=== PATIENT | male | born 1985 | race Caucasian/White ===

== ENCOUNTER 2017-01-29 13:06 | Inpatient (IN) | payer SELFPAY ==
[~2017-01-29] VITALS: Ht 175.3 cm; Wt 75.0 kg
[2017-01-29 13:08] VITALS: BP 128/69; PULSE 92; RESP 24; TEMP 98.8; O2SAT 100
[2017-01-29] MEDS ORDERED: SULFAMETHOXAZOLE-TRIMETHOPRIM DS 800-160 MG TAB PO ONE (13:30)
--- NOTE | 2017-01-29 13:31 | PD ---
HPI Chief Complaint: Suicide Ideation/Attempt Time Seen by Provider: 13:17 Travel History International Travel<30 days: No Contact w/Intl Traveler<30days: No Traveled to known affect area: No History of Present Illness HPI PATIENT STATES THAT HE HAS HAD SI, ABOUT ENDING HIS LIFE AND NOT WANTING TO LIVE ANYMORE, WHEN ASKED ABOUT PLANS, HE THOUGHT OF USING A HEROIN OVERDOSE. ON A SEPARATE COMPLAINT PATIENT HAS BEEN SHOOTING INTO HIS FEET AND C/O PAIN TO BOTH FEET, 5/10, REDNESS TO BOTH FEET BUT DENIES FEVER,N/V/D/ALICIA/CP/ABDPAIN/SOB ALL:NKDA PSHX NONE PMHX: NONE PFSH Past Medical History Hx Anticoagulant Therapy: No Anxiety: No Depression: Yes Cardiovascular Problems: No Chemotherapy: No Cerebrovascular Accident: No Diabetes: No Diminished Hearing: No Endocrine: No Gastrointestinal Disorders: Yes Genitourinary: No Hepatitis: Yes (C) Immune Disorder: No Musculoskeletal: No Neurologic: No Psychiatric: Yes Reproductive: No Respiratory: No Social History Alcohol Use: No Tobacco Use: Yes (1 PPD) Substance Use: Yes Allergies-Medications (Allergen,Severity, Reaction): Coded Allergies: *MDRO Multi-Drug Resistant Organism (Verified Adverse Reaction, Unknown, ) MRSA (arm/fluid) - 01/26/16 Reported Meds & Prescriptions Reported Meds & Active Scripts Active Review of Systems Except as stated in HPI: all other systems reviewed are Neg Skin: Positive Lesions Psychiatric: Positive: Depression, Suicidal Ideations Physical Exam Narrative GENERAL: SKIN: Warm and dry. LEFT LATERAL MID BICEPS REGION HAS OVAL SHAPED CELLULITIS ABOUT 5X10CM...ALSO BILATERAL DORSUM OF FEET HAS CELLULITIC CHANGES ABOUT 5X15CM , INDURATED BUT NONFLUCTUANT, NO STREAKING HEAD: Atraumatic. Normocephalic. EYES: Pupils equal and round. No scleral icterus. No injection or drainage. ENT: No nasal bleeding or discharge. Mucous membranes pink and moist. NECK: Trachea midline. No JVD. CARDIOVASCULAR: Regular rate and rhythm. RESPIRATORY: No accessory muscle use. Clear to auscultation. Breath sounds equal bilaterally. GASTROINTESTINAL: Abdomen soft, non-tender, nondistended. Hepatic and splenic margins not palpable. MUSCULOSKELETAL: Extremities without clubbing, cyanosis, or edema. No obvious deformities. NEUROLOGICAL: Awake and alert. No obvious cranial nerve deficits. Motor grossly within normal limits. Five out of 5 muscle strength in the arms and legs. Normal speech. PSYCHIATRIC: DEPRESSED mood and SAD affect; Data Data Last Documented VS Vital Signs Date Time Temp Pulse Resp B/P Pulse Ox O2 Delivery O2 Flow Rate FiO2 01/29/17 13:08 98.8 92 24 128/69 100 Room Air Orders Complete Blood Count With Diff (01/29/17 13:17) Comprehensive Metabolic Panel (01/29/17 13:17) Urinalysis - C+S If Indicated (01/29/17 13:17) Psych Screen (01/29/17 13:17) Drug Screen, Random Urine (01/29/17 13:17) Alcohol (Ethanol) (01/29/17 13:17) Salicylates (Aspirin) (01/29/17 13:17) Tylenol (Acetaminophen) (01/29/17 13:17) Sulfamet-Trimeth Ds 800-160 Mg (Bactrim (01/29/17 13:30) Isolation (01/29/17 15:13) Labs Laboratory Tests Test 01/29/17 01/29/17 01/29/17 13:36 15:01 15:10 Sodium Level 132 MEQ/L Potassium Level 3.3 MEQ/L Chloride Level 92 MEQ/L Carbon Dioxide Level 26.3 MEQ/L Anion Gap 14 MEQ/L Blood Urea Nitrogen 7 MG/DL Creatinine 0.83 MG/DL Estimat Glomerular Filtration 109 ML/MIN Rate Random Glucose 88 MG/DL Calcium Level 9.0 MG/DL Total Bilirubin 1.1 MG/DL Aspartate Amino Transf 59 U/L (AST/SGOT) Alanine Aminotransferase 147 U/L (ALT/SGPT) Alkaline Phosphatase 46 U/L Total Protein 7.0 GM/DL Albumin 3.3 GM/DL Salicylates Level LESS THAN 1.7 MG/DL Acetaminophen Level LESS THAN 2.0 MCG/ML Ethyl Alcohol Level LESS THAN 3 MG/DL White Blood Count 11.3 TH/MM3 Red Blood Count 4.56 MIL/MM3 Hemoglobin 14.5 GM/DL Hematocrit 41.8 % Mean Corpuscular Volume 91.6 FL Mean Corpuscular Hemoglobin 31.7 PG Mean Corpuscular Hemoglobin 34.6 % Concent Red Cell Distribution Width 12.8 % Platelet Count 251 TH/MM3 Mean Platelet Volume 9.0 FL Neutrophils (%) (Auto) 83.0 % Lymphocytes (%) (Auto) 9.7 % Monocytes (%) (Auto) 7.1 % Eosinophils (%) (Auto) 0.1 % Basophils (%) (Auto) 0.1 % Neutrophils # (Auto) 9.3 TH/MM3 Lymphocytes # (Auto) 1.1 TH/MM3 Monocytes # (Auto) 0.8 TH/MM3 Eosinophils # (Auto) 0.0 TH/MM3 Basophils # (Auto) 0.0 TH/MM3 CBC Comment DIFF FINAL Differential Comment Urine Color YELLOW Urine Turbidity CLEAR Urine pH 7.5 Urine Specific [place] 1.009 Urine Protein NEG mg/dL Urine Glucose (UA) NEG mg/dL Urine Ketones 80 mg/dL Urine Occult Blood NEG Urine Nitrite NEG Urine Bilirubin NEG Urine Urobilinogen 2.0 MG/DL Urine Leukocyte Esterase NEG Urine RBC LESS THAN 1 /hpf Urine WBC 1 /hpf Urine Squamous Epithelial <1 /hpf Cells Urine Hyaline Casts 2 /lpf Urine Mucus FEW /lpf Microscopic Urinalysis Comment CULT NOT INDICATED Urine Opiates Screen POS Urine Barbiturates Screen NEG Urine Amphetamines Screen NEG Urine Benzodiazepines Screen NEG Urine Cocaine Screen POS Urine Cannabinoids Screen POS MDM Medical Decision Making Medical Screen Exam Complete: Yes Emergency Medical Condition: Yes Medical Record Reviewed: Yes Differential Diagnosis CELLULITIS V ABSCESS V COINGESTIONS V ELECTROLYTE ABNL V THYROID Narrative Course PATIENT MEDICALLY CLEARED, RECC CONTINUED USE OF BACTRIM FOR 10 DAYS TO RESOLVE CELLULITIS DUE TO SELF INJECTIONS. Diagnosis Primary Impression: Medical clearance for psychiatric admission Additional Impression: CELLULITIS OF DORSUM OF FEET Scripts No Active Prescriptions or Reported Meds Koby Johnson MD Jan 29, 2017 13:31
[2017-01-29 14:35] LABS: ALT (GPT) 147 U/L (12-78); ANION GAP 14 MEQ/L (5-15); AST (GOT) 59 U/L (15-37); BICARBONATE 26.3 MEQ/L (21.0-32.0); BLOOD UREA NITROGEN 7 MG/DL (7-18); CHLORIDE 92 MEQ/L (98-107); GLOMERULAR FILTRATION RATE 109 ML/MIN (>89); POTASSIUM 3.3 MEQ/L (3.5-5.1); SODIUM (NA) 132 MEQ/L (136-145)
[2017-01-29 14:38] LABS: ACETAMINOPHEN LESS THAN 2.0 MCG/ML (10.0-30.0); ALKALINE PHOSPHATASE 46 U/L (45-117); TOTAL BILIRUBIN ADULT 1.1 MG/DL (0.2-1.0)
[2017-01-29 15:07] LABS: ALCOHOL LESS THAN 3 MG/DL (0-5)
[2017-01-29 15:53] LABS: AUTOMATED NEUTROPHIL # 9.3 TH/MM3 (1.8-7.7); BASOPHIL % 0.1 % (0.0-2.0); EOSINOPHIL % 0.1 % (0.0-4.0); HEMATOCRIT 41.8 % (39.0-51.0); HEMO FLAGS DIFF FINAL; LYMPH % 9.7 % (9.0-44.0); LYMPHOCYTE # 1.1 TH/MM3 (1.0-4.8); MEAN CELL VOLUME 91.6 FL (80.0-100.0); MEAN CORPUSCULAR HEMOGLOBIN 31.7 PG (27.0-34.0); MEAN CORPUSCULAR HGB CONC 34.6 % (32.0-36.0); MONO % 7.1 % (0.0-8.0); PLATELET COUNT 251 TH/MM3 (150-450); RED BLOOD COUNT 4.56 MIL/MM3 (4.50-5.90); RED CELL DISTRIBUTION WIDTH 12.8 % (11.6-17.2); WHITE BLOOD COUNT 11.3 TH/MM3 (4.0-11.0)
[2017-01-29 16:23] LABS: BLOOD, URINE NEG (NEG); COMMENT (UR) CULT NOT INDICATED; CULTURE IF INDICATED CULT NOT INDICATED; GLUCOSE,URINE NEG (NEG); HYALINE CAST, URINE 2 /lpf (RARE); KETONE, URINE 80 mg/dL (NEG); MUCUS URINE FEW /lpf (OCC); NITRITE,URINE NEG (NEG); PH, URINE 7.5 (5.0-8.5); SQUAMOUS EPITHELIAL CELL URINE <1 /hpf (0-5); URINE COLOR YELLOW (YELLW/STRAW)
[2017-01-29 18:40] VITALS: BP 140/75; PULSE 96; RESP 18; TEMP 99; O2SAT 98
[2017-01-30] MEDS ORDERED: VANCOMYCIN INJ 1,000 MG in SODIUM CHLOR 0.9% 250 ML INJ 250 ML IV ONE (01:30)
[2017-01-30] MEDS ORDERED: SULFAMETHOXAZOLE-TRIMETHOPRIM DS 800-160 MG TAB PO ONE (01:30)
[2017-01-30] MEDS ORDERED: CLINDAMYCIN PHOS 600 MG/4 ML VIAL IM ONE (01:30)
[2017-01-30] MEDS ORDERED: IBUPROFEN 600 MG TAB PO ONE (01:30)
--- NOTE | 2017-01-30 01:37 | PD ---
Physical Exam Narrative I was asked by psychiatric nurse to see the patient. Patient with history IV drug abuse and with cellulitis of left upper arm and bilateral feet. Data Data Last Documented VS Vital Signs Date Time Temp Pulse Resp B/P Pulse Ox O2 Delivery O2 Flow Rate FiO2 01/29/17 18:40 99.0 96 18 140/75 98 Room Air Orders Complete Blood Count With Diff (01/29/17 13:17) Comprehensive Metabolic Panel (01/29/17:17) Urinalysis - C+S If Indicated (01/29/17:) Psych Screen (01/29/17 13:17) Drug Screen, Random Urine (01/29/17:17) Alcohol (Ethanol) (01/29/17:) Salicylates (Aspirin) (01/29/17:) Tylenol (Acetaminophen) (01/29/17 13:17) Sulfamet-Trimeth Ds 800-160 Mg (Bactrim (01/29/17 13:30) Isolation 08,20 (01/29/17 15:13) Sulfamet-Trimeth Ds 800-160 Mg (Bactrim (01/30/17 01:30) Clindamycin Inj (Cleocin Inj) (01/30/17 01:30) Ibuprofen (Motrin) (01/30/17 01:30) Admit Order (Ed Use Only) (01/30/17 01:28) Vancomycin Inj (Vancomycin Inj) (01/30/17 01:30) Labs Laboratory Tests Test 01/29/17 01/29/17 01/29/17 13:36 15:01 15:10 Sodium Level 132 MEQ/L Potassium Level 3.3 MEQ/L Chloride Level 92 MEQ/L Carbon Dioxide Level 26.3 MEQ/L Anion Gap 14 MEQ/L Blood Urea Nitrogen 7 MG/DL Creatinine 0.83 MG/DL Estimat Glomerular Filtration 109 ML/MIN Rate Random Glucose 88 MG/DL Calcium Level 9.0 MG/DL Total Bilirubin 1.1 MG/DL Aspartate Amino Transf 59 U/L (AST/SGOT) Alanine Aminotransferase 147 U/L (ALT/SGPT) Alkaline Phosphatase 46 U/L Total Protein 7.0 GM/DL Albumin 3.3 GM/DL Salicylates Level LESS THAN 1.7 MG/DL Acetaminophen Level LESS THAN 2.0 MCG/ML Ethyl Alcohol Level LESS THAN 3 MG/DL White Blood Count 11.3 TH/MM3 Red Blood Count 4.56 MIL/MM3 Hemoglobin 14.5 GM/DL Hematocrit 41.8 % Mean Corpuscular Volume 91.6 FL Mean Corpuscular Hemoglobin 31.7 PG Mean Corpuscular Hemoglobin 34.6 % Concent Red Cell Distribution Width 12.8 % Platelet Count 251 TH/MM3 Mean Platelet Volume 9.0 FL Neutrophils (%) (Auto) 83.0 % Lymphocytes (%) (Auto) 9.7 % Monocytes (%) (Auto) 7.1 % Eosinophils (%) (Auto) 0.1 % Basophils (%) (Auto) 0.1 % Neutrophils # (Auto) 9.3 TH/MM3 Lymphocytes # (Auto) 1.1 TH/MM3 Monocytes # (Auto) 0.8 TH/MM3 Eosinophils # (Auto) 0.0 TH/MM3 Basophils # (Auto) 0.0 TH/MM3 CBC Comment DIFF FINAL Differential Comment Urine Color YELLOW Urine Turbidity CLEAR Urine pH 7.5 Urine Specific [place] 1.009 Urine Protein NEG mg/dL Urine Glucose (UA) NEG mg/dL Urine Ketones 80 mg/dL Urine Occult Blood NEG Urine Nitrite NEG Urine Bilirubin NEG Urine Urobilinogen 2.0 MG/DL Urine Leukocyte Esterase NEG Urine RBC LESS THAN 1 /hpf Urine WBC 1 /hpf Urine Squamous Epithelial <1 /hpf Cells Urine Hyaline Casts 2 /lpf Urine Mucus FEW /lpf Microscopic Urinalysis Comment CULT NOT INDICATED Urine Opiates Screen POS Urine Barbiturates Screen NEG Urine Amphetamines Screen NEG Urine Benzodiazepines Screen NEG Urine Cocaine Screen POS Urine Cannabinoids Screen POS MDM Supervised Visit with MELLY: No Narrative Course Patient will be admitted to the medical service with psychiatric consultation. Zosyn 3.375 g IV given. Vancomycin 1 g IV given. Diagnosis Primary Impression: Medical clearance for psychiatric admission Additional Impressions: CELLULITIS OF DORSUM OF FEET Left arm cellulitis Admitting Information Admitting Physician Requests: Admit Scripts No Active Prescriptions or Reported Meds Gabriel Castelan MD Jan 30, 2017 01:37
[2017-01-30] MEDS: SODIUM CHLOR 0.9% 1000 ML INJ 1,000 ML IV SCH ×2 (01:39→14:30)
[2017-01-30] MEDS ORDERED: LACTULOSE SYRUP 20 GM/30 ML CUP PO PRN (01:45)
[2017-01-30] MEDS ORDERED: PIPERACIL-TAZO 3.375 GM PREMIX 50 ML IV ONE (01:45)
[2017-01-30] MEDS ORDERED: Vancomycin Consult Pharmacy 1 EA OTHER SCH (01:45)
[2017-01-30] MEDS ORDERED: ONDANSETRON HCL 4 MG/2 ML VIAL IVP PRN (01:45)
[2017-01-30] MEDS ORDERED: SODIUM CHLORIDE 0.9% FLUSH 10 ML FLUSH IV FLUSH PRN (01:45)
[2017-01-30] MEDS ORDERED: ACETAMINOPHEN 325 MG TAB PO PRN (01:45)
[2017-01-30] MEDS ORDERED: SENNOSIDES 8.6 MG TAB PO PRN (01:45)
[2017-01-30] MEDS ORDERED: MAGNESIUM HYDROXIDE SUSP 30 ML CUP PO PRN (01:45)
[2017-01-30] MEDS ORDERED: BISACODYL 10 MG SUPP RECTAL PRN (01:45)
--- NOTE | 2017-01-30 03:08 | HHI.HP ---
[facility] Primary [facility]ician No Primary Care Physician Admission Diagnosis left foot cellulitis. Left arm cellulitis. Diagnoses: (1) Cellulitis Diagnosis: Principal (2) Hypokalemia Diagnosis: Principal (3) IVDU (intravenous drug user) Diagnosis: Principal (4) Suicidal ideation Diagnosis: Principal (5) Tobacco abuse Diagnosis: Principal Travel History International Travel<30 Days: No Contact w/Intl Traveler <30 Da: No Traveled to Known Affected Are: No History of Present Illness This is a 31 year-old male w/ a PMH of Hepatitis C, Tobacco Abuse and IVDU who was sent from [facility] for admission secondary to cellulitis. Initially presented to ER w/ Suicidal Ideation, currently under Rawls Act. Found to have LUE and Bilateral LE Cellulitis at previous injection sites, no abscess noted, s/p Bactrim PO and medically cleared however pt sent back to ER for medical admission due to extensive cellulitis. On arrival, BP 140/75, HR 96, O2 sat 98 % on RA, Temp 99.0. WBC 11.3. Chemistry unremarkable except for K+ 3.3. Urine Drug Screen positive for Opiates, Cocaine and Marijuana. Alcohol negative. S/p Vanc/Zosyn in ER. Review of Systems Except as stated in HPI: all other systems reviewed are Neg ROS: 14 point review of systems otherwise negative. Past Family Social History Past Medical History PMH: Hepatitis C, Tobacco Abuse and IVDU Past Surgical History PAST SURGICAL HISTORY: Orthopedic Surgery Allergies: Coded Allergies: *MDRO Multi-Drug Resistant Organism (Verified Adverse Reaction, Unknown, ) MRSA (arm/fluid) - 01/26/16 Family History PAST FAMILY HISTORY: Reviewed. No h/o DM or CAD Social History PAST SOCIAL HISTORY: Negative for alcohol. Smokes 1ppd. IVDU w/ Cocaine/ Opiates, +Marijuana. Physical Exam Vital Signs Vital Signs Date Time Temp Pulse Resp B/P Pulse Ox O2 Delivery O2 Flow Rate FiO2 01/29/17 18:40 99.0 96 18 140/75 98 Room Air 01/29/17 13:08 98.8 92 24 128/69 100 Room Air Physical Exam PE: GENERAL: Young male in no acute distress. HEENT: PERRLA, EOMI. No scleral icterus or conjunctival pallor. No lid lag or facial droop. CARDIOVASCULAR: Regular rate and rhythm. No obvious murmurs to auscultation. No chest tenderness to palpation. RESPIRATORY: No obvious rhonchi or wheezing. Clear to auscultation. Breath sounds equal bilaterally. GASTROINTESTINAL: Abdomen soft, non-tender, nondistended. BS normal. MUSCULOSKELETAL: Extremities without clubbing, cyanosis, or edema. No obvious deformities. LUE cellulitis, bilateral lower extremity cellulitis, no abscess noted. NEUROLOGICAL: Awake, alert and oriented x4. No focal neurologic deficits. Moving both upper and lower extremities spontaneously. Laboratory Laboratory Tests Test 01/29/17 01/29/17 01/29/17 13:36 15:01 15:10 Sodium Level 132 Potassium Level 3.3 Chloride Level 92 Carbon Dioxide Level 26.3 Anion Gap 14 Blood Urea Nitrogen 7 Creatinine 0.83 Estimat Glomerular Filtration 109 Rate Random Glucose 88 Calcium Level 9.0 Total Bilirubin 1.1 Aspartate Amino Transf 59 (AST/SGOT) Alanine Aminotransferase 147 (ALT/SGPT) Alkaline Phosphatase 46 Total Protein 7.0 Albumin 3.3 Salicylates Level LESS THAN 1.7 Acetaminophen Level LESS THAN 2.0 Ethyl Alcohol Level LESS THAN 3 White Blood Count 11.3 Red Blood Count 4.56 Hemoglobin 14.5 Hematocrit 41.8 Mean Corpuscular Volume 91.6 Mean Corpuscular Hemoglobin 31.7 Mean Corpuscular Hemoglobin 34.6 Concent Red Cell Distribution Width 12.8 Platelet Count 251 Mean Platelet Volume 9.0 Neutrophils (%) (Auto) 83.0 Lymphocytes (%) (Auto) 9.7 Monocytes (%) (Auto) 7.1 Eosinophils (%) (Auto) 0.1 Basophils (%) (Auto) 0.1 Neutrophils # (Auto) 9.3 Lymphocytes # (Auto) 1.1 Monocytes # (Auto) 0.8 Eosinophils # (Auto) 0.0 Basophils # (Auto) 0.0 CBC Comment DIFF FINAL Differential Comment Urine Color YELLOW Urine Turbidity CLEAR Urine pH 7.5 Urine Specific [place] 1.009 Urine Protein NEG Urine Glucose (UA) NEG Urine Ketones 80 Urine Occult Blood NEG Urine Nitrite NEG Urine Bilirubin NEG Urine Urobilinogen 2.0 Urine Leukocyte Esterase NEG Urine RBC LESS THAN 1 Urine WBC 1 Urine Squamous Epithelial <1 Cells Urine Hyaline Casts 2 Urine Mucus FEW Microscopic Urinalysis Comment CULT NOT INDICATED Urine Opiates Screen POS Urine Barbiturates Screen NEG Urine Amphetamines Screen NEG Urine Benzodiazepines Screen NEG Urine Cocaine Screen POS Urine Cannabinoids Screen POS Result Diagram: 01/29/17 1501 01/29/17 1336 Assessment and Plan Problem List: (1) Cellulitis ICD Code: L03.90 Status: Acute (2) IVDU (intravenous drug user) ICD Code: F19.90 Status: Acute (3) Suicidal ideation ICD Code: R45.851 Status: Acute (4) Hypokalemia ICD Code: E87.6 Status: Acute (5) Tobacco abuse ICD Code: Z72.0 Status: Chronic Assessment and Plan A/P: 1. Cellulitis: LUE and Bilateral LE Cellulitis at sites of injection, Temp 99.0, WBC 11. S/p Vanc/Zosyn in ER, will obtain Blood Cultures x3, continue w/ IV Abx. Repeat labs in am. 2. IVDU: w/ Cocaine/Opiates, Ativan prn for withdrawal. 3. Hypokalemia: Mild. K+ 3.3, will recheck labs and replace as needed. 4. Suicidal Ideation: Currently under Rawls Act, Sitter, Consult Psych. 5. Tobacco Abuse: Pt counselled. Ativan/NicoDerm prn if needed. 6. DVT Prophylaxis: Mechanical contraindication in light of lower extremity cellulitis. 7. Social work for d/c planning as needed. 8. Case discussed w/ ER physician at length. Physician Certification 2 Midnight Certification Type: Admission for Inpatient Services Order for Inpatient Services The services are ordered in accordance with Medicare regulations or non- Medicare payer requirements, as applicable. In the case of services not specified as inpatient-only, they are appropriately provided as inpatient services in accordance with the 2-midnight benchmark. Estimated LOS (days): 2 days is the estimated time the patient will need to remain in the hospital, assuming treatment plan goals are met and no additional complications. Post-Hospital Plan: Not yet determined Problem Qualifiers (1) Cellulitis: Robyn Rainey MD Jan 30, 2017 03:08
[2017-01-30] MEDS ORDERED: POTASSIUM CHLORIDE 20 MEQ CONTROLLED RELEASE TAB PO ONE (08:15)
[2017-01-30] MEDS: PIPERACIL-TAZO 4.5 GM PREMIX 100 ML IV SCH ×3 (08:22→21:04)
[2017-01-30] MEDS: DOCUSATE SODIUM 50 MG/SENNA 8.6 MG TAB PO SCH ×2 (09:00→21:01)
[2017-01-30] MEDS: SODIUM CHLORIDE 0.9% FLUSH 10 ML FLUSH IV FLUSH SCH ×2 (09:00→21:04)
[2017-01-30 09:12] VITALS: BP 126/68; PULSE 75; RESP 18; TEMP 97.5; O2SAT 96
[2017-01-30] MEDS ORDERED: VANCOMYCIN 1,000 MG/NS 250 ML IV SCH ×2 (10:00)
--- NOTE | 2017-01-30 10:01 | HHI.PR ---
Subjective Remarks Follow up for cellulitis, IVDU, suicidal ideations. The patient reports minimal improvement of his leg erythema/edema. He admits to injecting into both feet and left arm distal to the areas of cellulitis. He reports subjective chills and sweats overnight, no documented fevers. He's tolerating oral intake. Denies nausea/vomiting/diarrhea. He has no other medical complaints at this time. Objective Vitals Vital Signs Date Time Temp Pulse Resp B/P Pulse Ox O2 Delivery O2 Flow Rate FiO2 01/30/17 09:12 97.5 75 18 126/68 96 01/29/17 18:40 99.0 96 18 140/75 98 Room Air 01/29/17 13:08 98.8 92 24 128/69 100 Room Air I/O 01/29/17 01/29/17 01/29/17 01/30/17 01/30/17 01/30/17 07:00 15:00 23:00 07:00 15:00 23:00 Intake Total 200 ml 200 ml Balance 200 ml 200 ml Intake Oral 200 ml 200 ml Result Diagram: 01/29/17 1501 01/29/17 1336 Objective Remarks GENERAL: Well-nourished, well-developed young male patient in [facility]. SKIN: Warm and dry. LUE bicep region with erythema/edema. LLE foot with diffuse erythema, edema, TTP. RLE foot with less erythema/edema. No areas of induration/ drainage. HEENT: Normocephalic. Atraumatic. Pupils equal and round. Mucous membranes pink and moist. CARDIOVASCULAR: Regular rate and rhythm. S1, S2 noted. No murmur appreciated. RESPIRATORY: No accessory muscle use. Clear to auscultation. Breath sounds equal bilaterally. GASTROINTESTINAL: Abdomen soft, non-tender, nondistended. Normoactive bowel sounds x4. MUSCULOSKELETAL: No obvious deformities. Extremities without clubbing, cyanosis , or edema. NEUROLOGICAL: Awake and alert. No obvious cranial nerve deficits. Normal speech. PSYCHIATRIC: Appropriate mood and affect; insight and judgment normal. Medications and IVs Current Medications Medications (Trade) Dose Ordered Sig/Molly Route Start Time Stop Time Status Last Admin Pharmacy Profile Note 0 ml @ 0 mls/hr UNSCH OTHER 01/30/17 01:45 (Zosyn 4.5 Gm Premix) 100 ml @ 200 mls/hr Q6H IV 01/30/17 08:00 01/30/17 08:22 Lorazepam 1 mg 1 mg Q2H PRN IV PUSH 01/30/17 01:45 (NS 1000 ml Inj) 1,000 ml @ 100 mls/hr Q10H IV 01/30/17 01:39 01/30/17 01:39 (NS Flush) 2 ml UNSCH PRN IV FLUSH 01/30/17 01:45 (NS Flush) 2 ml BID IV FLUSH 01/30/17 09:00 (Zofran Inj) 4 mg Q6H PRN IVP 01/30/17 01:45 (Tylenol) 650 mg Q6H PRN PO 01/30/17 01:45 (Roxicodone) 10 mg Q4H PRN PO 01/30/17 01:45 (Roxicodone) 5 mg Q4H PRN PO 01/30/17 01:45 (Mamta-Colace) 1 tab BID PO 01/30/17 09:00 (Milk Of Magnesia Liq) 30 ml Q12H PRN PO 01/30/17 01:45 (Senokot) 17.2 mg Q12H PRN PO 01/30/17 01:45 (Dulcolax Supp) 10 mg DAILY PRN RECTAL 01/30/17 01:45 (Lactulose Liq) 30 ml DAILY PRN PO 01/30/17 01:45 Pneumococcal Polyvalent Vaccine 25 mcg 25 mcg ONCE ONCE IM 01/31/17 10:00 01/31/17 10:01 (Vancomycin Inj/ NS 250 ml Inj) 250 ml @ 250 mls/hr Q12H IV 01/30/17 10:00 Miscellaneous Information SPECIFIC LAB TO BE KAITLIN... ONCE ONCE .XX 01/31/17 01:45 01/31/17 01:46 A/P Problem List: (1) Cellulitis ICD Code: L03.90 Status: Acute (2) IVDU (intravenous drug user) ICD Code: F19.90 Status: Acute (3) Suicidal ideation ICD Code: R45.851 Status: Acute (4) Hypokalemia ICD Code: E87.6 Status: Acute (5) Tobacco abuse ICD Code: Z72.0 Status: Chronic Assessment and Plan 31 year-old male w/ a PMH of Hepatitis C, Tobacco Abuse and IVDU who was sent from [facility] for admission secondary to cellulitis. Cellulitis: LUE and Bilateral LE Cellulitis at sites of injection, Temp 99.0, tachycardia HR 96, WBC 11.3K. Continue antibiotics with IV Vanco and Zosyn. Start on toradol for inflammation. Oxycodone prn pain. Collect blood cultures. Monitor labs. Polysubstance IVDU: UDS + Cocaine/Opiates and cannabinoids. Ativan prn for withdrawal. Hypokalemia: Mild. K+ 3.3. Given po KCl replacement. Repeat labs. Suicidal Ideation: Currently under [employer]ls Act. Continue Sitter. Consult Psych. Tobacco Abuse: Pt counselled. Ativan/NicoDerm prn if needed. DVT Prophylaxis: Lovenox. Mechanical contraindication secondary to lower extremity cellulitis. Discharge Planning Pending further clinical improvement. Not yet ready for discharge. Possible discharge in 2-3 days. Problem Qualifiers (1) Cellulitis: Anika Beckett PA-C Jan 30, 2017 10:01 am
[2017-01-30] MEDS: KETOROLAC TROMETHAMINE 30 MG/ML (IVP) VIAL IV PUSH SCH ×2 (11:54→17:30)
[2017-01-30] MEDS: LORazepam 2 MG/ML VIAL IV PUSH PRN ×3 (11:54→21:06)
[2017-01-30 14:35] VITALS: BP 118/69; PULSE 79; RESP 16; TEMP 98.6; O2SAT 98
[2017-01-30] MEDS: GABAPENTIN 300 MG CAP PO SCH (17:20)
[2017-01-30] MEDS: VANCOMYCIN 1,000 MG/NS 250 ML IV SCH ×2 (17:30)
[2017-01-30 18:51] VITALS: BP 122/65; PULSE 72; RESP 16; TEMP 98.6; O2SAT 69
[2017-01-30 20:38] VITALS: BP 126/77; PULSE 64; RESP 18; TEMP 98.7; O2SAT 97
[2017-01-30] MEDS: QUEtiapine FUMARATE 25 MG TAB PO SCH (21:01)
[2017-01-30] MEDS: ENOXAPARIN SODIUM 40 MG/0.4 ML SYRINGE SQ SCH (21:05)
[2017-01-31] MEDS: KETOROLAC TROMETHAMINE 30 MG/ML (IVP) VIAL IV PUSH SCH ×4 (00:19→17:27)
[2017-01-31] MEDS: PIPERACIL-TAZO 4.5 GM PREMIX 100 ML IV SCH ×4 (01:41→20:34)
[2017-01-31] MEDS ORDERED: PHARMACY ORDERED LAB ONE (01:45)
[2017-01-31] MEDS: VANCOMYCIN 1,000 MG/NS 250 ML IV SCH ×2 (03:17)
[2017-01-31 03:31] VITALS: BP 123/69; PULSE 63; RESP 18; TEMP 98.7; O2SAT 97
[2017-01-31] MEDS: LORazepam 2 MG/ML VIAL IV PUSH PRN (05:58)
[2017-01-31] MEDS: SODIUM CHLORIDE 0.9% FLUSH 10 ML FLUSH IV FLUSH SCH ×2 (05:58→20:34)
[2017-01-31] MEDS: SODIUM CHLOR 0.9% 1000 ML INJ 1,000 ML IV SCH ×3 (06:00→17:39)
[2017-01-31 06:51] VITALS: BP 126/81; PULSE 72; RESP 18; TEMP 98.4; O2SAT 97
[2017-01-31 07:50] LABS: AUTOMATED NEUTROPHIL # 5.6 TH/MM3 (1.8-7.7); BASOPHIL % 0.4 % (0.0-2.0); EOSINOPHIL # 0.2 TH/MM3 (0-0.4); EOSINOPHIL % 2.4 % (0.0-4.0); HEMATOCRIT 41.6 % (39.0-51.0); HEMO FLAGS DIFF FINAL; LYMPH % 21.9 % (9.0-44.0); LYMPHOCYTE # 1.9 TH/MM3 (1.0-4.8); MEAN CELL VOLUME 92.9 FL (80.0-100.0); MEAN CORPUSCULAR HEMOGLOBIN 31.8 PG (27.0-34.0); MEAN CORPUSCULAR HGB CONC 34.2 % (32.0-36.0); MONO % 11.2 % (0.0-8.0); NEUT % 64.1 % (16.0-70.0); PLATELET COUNT 268 TH/MM3 (150-450); RED BLOOD COUNT 4.48 MIL/MM3 (4.50-5.90); RED CELL DISTRIBUTION WIDTH 12.5 % (11.6-17.2); WHITE BLOOD COUNT 8.7 TH/MM3 (4.0-11.0)
[2017-01-31 08:08] LABS: ALKALINE PHOSPHATASE 41 U/L (45-117); ALT (GPT) 83 U/L (12-78); ANION GAP 7 MEQ/L (5-15); AST (GOT) 25 U/L (15-37); BICARBONATE 27.8 MEQ/L (21.0-32.0); BLOOD UREA NITROGEN 4 MG/DL (7-18); CHLORIDE 105 MEQ/L (98-107); GLOMERULAR FILTRATION RATE 64 ML/MIN (>89); POTASSIUM 3.5 MEQ/L (3.5-5.1); SODIUM (NA) 140 MEQ/L (136-145); TOTAL BILIRUBIN ADULT 0.6 MG/DL (0.2-1.0)
[2017-01-31] MEDS: GABAPENTIN 300 MG CAP PO SCH ×3 (08:27→17:25)
[2017-01-31] MEDS: QUEtiapine FUMARATE 25 MG TAB PO SCH ×2 (08:27→20:34)
[2017-01-31] MEDS: DOCUSATE SODIUM 50 MG/SENNA 8.6 MG TAB PO SCH ×2 (08:27→20:34)
[2017-01-31 08:50] VITALS: BP 131/82; PULSE 60; RESP 18; TEMP 98.5; O2SAT 99
[2017-01-31] MEDS ORDERED: PNEUMOCOCCAL POLYVALENT INJ 25 MCG/0.5 ML SYR IM ONE (10:00)
[2017-01-31] MEDS ORDERED: INFLUENZA VIRUS VACCINE (QUADRIVALENT) 0.5 ML SYR IM ONE (10:00)
--- NOTE | 2017-01-31 11:17 | HHI.PR ---
Subjective Remarks Follow up for cellulitis, IVDU. The patient reports continued pain at bilateral feet and left arm although he does believe the erythema/edema is slowly improving. Denies fevers but does report chills overnight. Denies any chest pain or shortness of breath. He is tolerating oral intake, has occasional nausea but no vomiting. Denies any diarrhea. He does not feel ready for discharge. Objective Vitals Vital Signs Date Time Temp Pulse Resp B/P Pulse Ox O2 Delivery O2 Flow Rate FiO2 01/31/17 08:50 98.5 60 18 131/82 99 01/31/17 06:51 98.4 72 18 126/81 97 01/31/17 03:31 98.7 63 18 123/69 97 01/30/17 20:38 98.7 64 18 126/77 97 01/30/17 18:51 98.6 72 16 122/65 69 01/30/17 14:35 98.6 79 16 118/69 98 I/O 01/30/17 01/30/17 01/30/17 01/31/17 01/31/17 01/31/17 07:00 15:00 23:00 07:00 15:00 23:00 Intake Total 200 ml 200 ml 980 ml Balance 200 ml 200 ml 980 ml Intake Oral 200 ml 200 ml IV Total 980 ml # Voids 1 # Bowel Movements 1 Result Diagram: 01/31/1755 01/31/1755 Objective Remarks GENERAL: Well-nourished, well-developed young male patient in [facility]. SKIN: Warm and dry. LUE bicep region with erythema/edema. LLE foot with diffuse erythema, edema, TTP. RLE foot with less erythema/edema. No areas of induration/ drainage. HEENT: Normocephalic. Atraumatic. Pupils equal and round. Mucous membranes pink and moist. CARDIOVASCULAR: Regular rate and rhythm. S1, S2 noted. No murmur appreciated. RESPIRATORY: No accessory muscle use. Clear to auscultation. Breath sounds equal bilaterally. GASTROINTESTINAL: Abdomen soft, non-tender, nondistended. Normoactive bowel sounds x4. MUSCULOSKELETAL: No obvious deformities. Extremities without clubbing, cyanosis , or edema. NEUROLOGICAL: Awake and alert. No obvious cranial nerve deficits. Normal speech. PSYCHIATRIC: Appropriate mood and affect; insight and judgment normal. Medications and IVs Current Medications Medications (Trade) Dose Ordered Sig/Molly Route Start Time Stop Time Status Last Admin Pharmacy Profile Note 0 ml @ 0 mls/hr UNSCH OTHER 01/30/17 01:45 (Zosyn 4.5 Gm Premix) 100 ml @ 200 mls/hr Q6H IV 01/30/17 08:00 01/31/17 08:27 Lorazepam 1 mg 1 mg Q2H PRN IV PUSH 01/30/17 01:45 01/31/17 05:58 (NS 1000 ml Inj) 1,000 ml @ 100 mls/hr Q10H IV 01/30/17 01:39 01/31/17 06:00 (NS Flush) 2 ml UNSCH PRN IV FLUSH 01/30/17 01:45 (NS Flush) 2 ml BID IV FLUSH 01/30/17 09:00 01/31/17 05:58 (Zofran Inj) 4 mg Q6H PRN IVP 01/30/17 01:45 01/30/17 21:30 (Tylenol) 650 mg Q6H PRN PO 01/30/17 01:45 (Roxicodone) 10 mg Q4H PRN PO 01/30/17 01:45 01/30/17 21:29 (Roxicodone) 5 mg Q4H PRN PO 01/30/17 01:45 (Mamta-Colace) 1 tab BID PO 01/30/17 09:00 01/30/17 21:01 (Milk Of Magnesia Liq) 30 ml Q12H PRN PO 01/30/17 01:45 (Senokot) 17.2 mg Q12H PRN PO 01/30/17 01:45 (Dulcolax Supp) 10 mg DAILY PRN RECTAL 01/30/17 01:45 (Lactulose Liq) 30 ml DAILY PRN PO 01/30/17 01:45 (Lovenox Inj) 40 mg HS SQ 01/30/17 21:00 01/30/17 21:05 (Toradol Inj) 15 mg Q6HR IV PUSH 01/30/17 12:00 02/04/17 11:59 01/31/17 05:59 (Neurontin) 300 mg TID PO 01/30/17 18:00 01/31/17 08:27 Quetiapine Fumarate 50 mg 50 mg BID PO 01/30/17 21:00 01/31/17 08:27 (Vancomycin Inj/ NS 250 ml Inj) 262.5 ml @ 250 mls/hr Q12H IV 01/31/17 15:00 Miscellaneous Information SPECIFIC LAB TO BE DRAWN:VANCOMYCIN TROUGH DATE TO... ONCE ONCE .XX 02/01/17 14:45 02/01/17 14:46 A/P Problem List: (1) Cellulitis ICD Code: L03.90 Status: Acute (2) IVDU (intravenous drug user) ICD Code: F19.90 Status: Acute (3) Suicidal ideation ICD Code: R45.851 Status: Acute (4) Hypokalemia ICD Code: E87.6 Status: Acute (5) Tobacco abuse ICD Code: Z72.0 Status: Chronic Assessment and Plan 31 year-old male w/ a PMH of Hepatitis C, Tobacco Abuse and IVDU who was sent from [facility] for admission secondary to cellulitis. Cellulitis: LUE and Bilateral LE Cellulitis at sites of injection, Temp 99.0, tachycardia HR 96, WBC 11.3K. Continue antibiotics with IV Vanco and Zosyn. Start on toradol for inflammation. Oxycodone prn pain. Blood cultures pending. Monitor labs. Polysubstance IVDU: UDS + Cocaine/Opiates and cannabinoids. Ativan prn for withdrawal. Oxycodone prn. RICKY: Cr increased from 0.83 to 1.32 overnight. Possible secondary to vanco vs gabapentin vs dehydration. Patient reports he was not connected to IVF most of the night. RN reports trouble with IV. Replace IV, Continue IVF. Repeat BMP in the morning. Hypokalemia: Mild. K+ 3.3. Given po KCl replacement. Repeat labs show improvement, K 3.5. Monitor. Suicidal Ideation: Presented under [place]. Consulted Psych, [place] Act lifted, started on Seroquel. D/c sitter. No further SI. Tobacco Abuse: Pt counselled. Ativan/NicoDerm prn if needed. DVT Prophylaxis: Lovenox. Mechanical contraindication secondary to lower extremity cellulitis. Discharge Planning Pending further clinical improvement. Not yet ready for discharge. Possible discharge in 1-2 days. Problem Qualifiers (1) Cellulitis: Anika Beckett PA-C Jan 31, 2017 11:17 am
[2017-01-31 11:56] VITALS: BP 115/64; PULSE 93; RESP 18; TEMP 98.7; O2SAT 97
[2017-01-31] MEDS: VANCOMYCIN INJ 1,250 MG in SODIUM CHLOR 0.9% 250 ML INJ 250 ML IV SCH (14:45)
[2017-01-31 16:11] VITALS: BP 128/84; PULSE 76; RESP 18; TEMP 99.5; O2SAT 96
[2017-01-31 19:54] VITALS: BP 117/62; PULSE 90; RESP 18; TEMP 98.6; O2SAT 98
[2017-01-31] MEDS: ENOXAPARIN SODIUM 40 MG/0.4 ML SYRINGE SQ SCH (20:35)
[2017-02-01 00:09] VITALS: BP 120/65; PULSE 88; RESP 18; TEMP 98; O2SAT 98
[2017-02-01] MEDS: PIPERACIL-TAZO 4.5 GM PREMIX 100 ML IV SCH ×3 (01:04→14:59)
[2017-02-01] MEDS: KETOROLAC TROMETHAMINE 30 MG/ML (IVP) VIAL IV PUSH SCH ×5 (01:04→23:16)
[2017-02-01] MEDS: SODIUM CHLOR 0.9% 1000 ML INJ 1,000 ML IV SCH ×2 (01:05→12:56)
[2017-02-01] MEDS: VANCOMYCIN INJ 1,250 MG in SODIUM CHLOR 0.9% 250 ML INJ 250 ML IV SCH ×2 (02:58→16:49)
[2017-02-01 03:33] VITALS: BP 130/65; PULSE 78; RESP 18; TEMP 98; O2SAT 99
[2017-02-01] MEDS: DOCUSATE SODIUM 50 MG/SENNA 8.6 MG TAB PO SCH ×2 (08:18→21:48)
[2017-02-01] MEDS: QUEtiapine FUMARATE 25 MG TAB PO SCH ×2 (08:18→21:48)
[2017-02-01] MEDS: GABAPENTIN 300 MG CAP PO SCH ×3 (08:18→17:58)
[2017-02-01] MEDS: SODIUM CHLORIDE 0.9% FLUSH 10 ML FLUSH IV FLUSH SCH ×2 (09:00→21:00)
[2017-02-01 09:59] VITALS: BP 119/87; PULSE 63; RESP 18; TEMP 99; O2SAT 95
[2017-02-01 13:25] LABS: BICARBONATE 30.5 MEQ/L (21.0-32.0); POTASSIUM 3.5 MEQ/L (3.5-5.1)
[2017-02-01] MEDS ORDERED: PHARMACY ORDERED LAB ONE (14:45)
[2017-02-01 14:49] VITALS: BP 129/95; PULSE 75; RESP 18; TEMP 97.8; O2SAT 97
--- NOTE | 2017-02-01 15:49 | HHI.PR ---
Subjective Remarks Follow up for cellulitis. The patient reports much improvement of his cellulitis overnight with less erythema and pain. Denies fevers or chills. He feels like he may be withdrawing. He states he uses heroin regularly. He has had intermittent sweats, poor appetite, with associated abdominal cramping and 3 episodes of diarrhea. Denies any nausea/vomiting. Continues to deny any chest pain or shortness of breath. Objective Vitals Vital Signs Date Time Temp Pulse Resp B/P Pulse Ox O2 Delivery O2 Flow Rate FiO2 02/01/17 14:49 97.8 75 18 129/95 97 02/01/17 09:59 99.0 63 18 119/87 95 02/01/17 03:33 98.0 78 18 130/65 99 02/01/17 02:27 18 02/01/17 00:09 98.0 88 18 120/65 98 01/31/17 19:54 98.6 90 18 117/62 98 01/31/17 17:22 16 01/31/17 16:11 99.5 76 18 128/84 96 I/O 01/31/17 01/31/17 01/31/17 02/01/17 02/01/17 02/01/17 07:00 15:00 23:00 07:00 15:00 23:00 Intake Total 980 ml 1000 ml Balance 980 ml 1000 ml IV Total 980 ml 1000 ml # Voids 1 1 # Bowel Movements 4 Result Diagram: 01/31/17 0655 02/01/17 1227 Objective Remarks GENERAL: Well-nourished, well-developed young male patient in [facility]. SKIN: Warm and dry. LUE bicep region erythema/edema resolved. LLE foot with minimal erythema/edema, nontender, much improved. RLE foot erythema/edema resolved. No areas of induration/drainage. HEENT: Normocephalic. Atraumatic. Pupils equal and round. Mucous membranes pink and moist. CARDIOVASCULAR: Regular rate and rhythm. S1, S2 noted. No murmur appreciated. RESPIRATORY: No accessory muscle use. Clear to auscultation. Breath sounds equal bilaterally. GASTROINTESTINAL: Abdomen soft, non-tender, nondistended. Normoactive bowel sounds x4. MUSCULOSKELETAL: No obvious deformities. Extremities without clubbing, cyanosis , or edema. NEUROLOGICAL: Awake and alert. No obvious cranial nerve deficits. Normal speech. PSYCHIATRIC: Appropriate mood and affect; insight and judgment normal. Medications and IVs Current Medications Medications (Trade) Dose Ordered Sig/Molly Route Start Time Stop Time Status Last Admin Lorazepam 1 mg 1 mg Q2H PRN IV PUSH 01/30/17 01:45 01/31/17 05:58 (NS 1000 ml Inj) 1,000 ml @ 100 mls/hr Q10H IV 01/30/17 01:39 02/01/17 12:56 (NS Flush) 2 ml UNSCH PRN IV FLUSH 01/30/17 01:45 (NS Flush) 2 ml BID IV FLUSH 01/30/17 09:00 01/31/17 05:58 (Zofran Inj) 4 mg Q6H PRN IVP 01/30/17 01:45 01/30/17 21:30 (Tylenol) 650 mg Q6H PRN PO 01/30/17 01:45 (Roxicodone) 10 mg Q4H PRN PO 01/30/17 01:45 02/01/17 14:33 (Roxicodone) 5 mg Q4H PRN PO 01/30/17 01:45 (Mamta-Colace) 1 tab BID PO 01/30/17 09:00 02/01/17 08:18 (Milk Of Magnesia Liq) 30 ml Q12H PRN PO 01/30/17 01:45 (Senokot) 17.2 mg Q12H PRN PO 01/30/17 01:45 (Dulcolax Supp) 10 mg DAILY PRN RECTAL 01/30/17 01:45 (Lactulose Liq) 30 ml DAILY PRN PO 01/30/17 01:45 (Lovenox Inj) 40 mg HS SQ 01/30/17 21:00 01/31/17 20:35 (Toradol Inj) 15 mg Q6HR IV PUSH 01/30/17 12:00 02/04/17 11:59 02/01/17 17:58 (Neurontin) 300 mg TID PO 01/30/17 18:00 02/01/17 17:58 (SEROquel) 50 mg BID PO 01/30/17 21:00 02/01/17 08:18 (Bactrim Ds 800-160 Mg) 1 tab Q12HR PO 02/01/17 21:00 A/P Problem List: (1) Cellulitis ICD Code: L03.90 Status: Acute (2) IVDU (intravenous drug user) ICD Code: F19.90 Status: Acute (3) Suicidal ideation ICD Code: R45.851 Status: Acute (4) Hypokalemia ICD Code: E87.6 Status: Acute (5) Tobacco abuse ICD Code: Z72.0 Status: Chronic Assessment and Plan 31 year-old male w/ a PMH of Hepatitis C, Tobacco Abuse and IVDU who was sent from [facility] for admission secondary to cellulitis. Cellulitis: LUE and Bilateral LE Cellulitis at sites of injection, Temp 99.0, tachycardia HR 96, WBC 11.3K. Continue antibiotics. Continue on toradol for inflammation. Oxycodone prn pain. Blood cultures with NGTD. Monitor labs. Cellulitis much improved, changed IV Vanco/Zosyn to Bactrim po. Polysubstance IVDU: UDS + Cocaine/Opiates and cannabinoids. Ativan prn for withdrawal. Oxycodone prn. Opioid Withdrawal: suspected, with abdominal cramping/diarrhea. Rule out Cdiff while on abx. Oxycodone prn. RICKY: Cr increased from 0.83 to 1.32. Possible secondary to vanco vs gabapentin vs dehydration. Patient reports he was not connected to IVF most of the night. RN reports trouble with IV. Replaced IV, Continue IVF. Repeat BMP show improvement with Cr 1.26. Avoid nephrotoxins. Hypokalemia: Mild. K+ 3.3. Given po KCl replacement. Repeat labs show improvement, K 3.5. Monitor. Suicidal Ideation: Presented under [place]. Consulted Psych, [place] Act lifted, started on Seroquel. D/c sitter. No further SI. Tobacco Abuse: Pt counselled. Ativan/NicoDerm prn if needed. DVT Prophylaxis: Lovenox. Mechanical contraindication secondary to lower extremity cellulitis. Discharge Planning Pending further clinical improvement. Not yet ready for discharge. Likely discharge tomorrow. Problem Qualifiers (1) Cellulitis: Anika Beckett PA-C Feb 01, 2017 15:49
[2017-02-01 17:02] VITALS: BP 120/71; PULSE 91; RESP 18; TEMP 99; O2SAT 96
[2017-02-01 20:03] VITALS: BP 131/92; PULSE 83; RESP 18; TEMP 98; O2SAT 99
[2017-02-01] MEDS: ENOXAPARIN SODIUM 40 MG/0.4 ML SYRINGE SQ SCH ×2 (21:48→23:17)
[2017-02-01] MEDS: SULFAMETHOXAZOLE-TRIMETHOPRIM DS 800-160 MG TAB PO SCH (23:16)
[2017-02-02 00:21] VITALS: BP 130/89; PULSE 75; RESP 18; TEMP 98.2; O2SAT 99
[2017-02-02 04:02] VITALS: BP 132/86; PULSE 89; RESP 18; TEMP 98.5; O2SAT 99
[2017-02-02] MEDS: KETOROLAC TROMETHAMINE 30 MG/ML (IVP) VIAL IV PUSH SCH (06:23)
[2017-02-02] MEDS: SODIUM CHLOR 0.9% 1000 ML INJ 1,000 ML IV SCH ×2 (06:23→09:17)
[2017-02-02 07:43] VITALS: BP 129/90; PULSE 72; RESP 14; TEMP 98.2; O2SAT 98
[2017-02-02] MEDS: SODIUM CHLORIDE 0.9% FLUSH 10 ML FLUSH IV FLUSH SCH (09:00)
[2017-02-02] MEDS: DOCUSATE SODIUM 50 MG/SENNA 8.6 MG TAB PO SCH (09:00)
[2017-02-02] MEDS: QUEtiapine FUMARATE 25 MG TAB PO SCH (09:17)
[2017-02-02] MEDS: SULFAMETHOXAZOLE-TRIMETHOPRIM DS 800-160 MG TAB PO SCH (09:17)
[2017-02-02] MEDS: GABAPENTIN 300 MG CAP PO SCH (09:17)
[2017-02-02] MEDS ORDERED: SULF1TAB23 PO (09:47)
[2017-02-02] MEDS ORDERED: QUET1TAB7 PO (09:47)
--- NOTE | 2017-02-02 09:47 | HHI.DCPOC ---
Discharge Care Plan Diagnosis: (1) Cellulitis (2) Substance induced mood disorder (3) Substance abuse Your Health Problems Are: Inflammation Swelling Goals to Promote Your Health * To prevent worsening of your condition and complications * To maintain your health at the optimal level Directions to Meet Your Goals Take your medications as prescribed Follow your dietary instruction Follow activity as directed Keep your appointments as scheduled Take your immunizations and boosters as scheduled If your symptoms worsen call your PCP, if no PCP go to Urgent Care Center or Emergency Room Smoking is Dangerous to Your Health. Avoid second hand smoke Call the 24-hour hour crisis hotline for domestic abuse at Anika Beckett PA-C Feb 02, 2017 09:47
--- NOTE | 2017-02-02 10:11 | HHI.DS ---
Discharge Summary Admission Date Jan 30, 2017 at 1:30 am Discharge Date: Feb 02, 2017 Admitting Diagnosis left foot cellulitis. Left arm cellulitis. (1) Cellulitis ICD Code: L03.90 Diagnosis: Principal (2) IVDU (intravenous drug user) ICD Code: F19.90 Diagnosis: Secondary (3) Suicidal ideation ICD Code: R45.851 Diagnosis: Secondary (4) Hypokalemia ICD Code: E87.6 Diagnosis: Secondary (5) Tobacco abuse ICD Code: Z72.0 Diagnosis: Secondary (6) Substance induced mood disorder ICD Code: F19.94 Diagnosis: Secondary (7) RICKY (acute kidney injury) ICD Code: N17.9 Diagnosis: Secondary Procedures None. Brief History - From Admission 31 year-old male w/ a PMH of Hepatitis C, Tobacco Abuse and IVDU who was sent from [facility] for admission secondary to cellulitis. Initially presented to ER w/ Suicidal Ideation, currently under [place] Act. Found to have LUE and Bilateral LE Cellulitis at previous injection sites, no abscess noted, s/p Bactrim PO and medically cleared however pt sent back to ER for medical admission due to extensive cellulitis. On arrival, BP 140/75, HR 96, O2 sat 98% on RA, Temp 99.0. WBC 11.3. Chemistry unremarkable except for K+ 3.3. Urine Drug Screen positive for Opiates, Cocaine and Marijuana. Alcohol negative. S/p Vanc/Zosyn in ER. CBC/BMP: 01/31/17 0655 02/01/17 1227 Significant Findings Laboratory Tests Test 01/31/17 01/31/17 02/01/17 02/01/17 01:40 06:55 12:27 15:20 Vancomycin Level Trough 12.5 MCG/ML 10.5 MCG/ML (5.0-10.0) (5.0-10.0) Red Blood Count 4.48 MIL/MM3 (4.50-5.90) Monocytes (%) (Auto) 11.2 % (0.0-8.0) Monocytes # (Auto) 1.0 TH/MM3 (0-0.9) Blood Urea Nitrogen 4 MG/DL (7-18) 5 MG/DL (7-18) Creatinine 1.32 MG/DL (0.60-1.30) Estimat Glomerular Filtration 64 ML/MIN (>89) 67 ML/MIN (>89) Rate Calcium Level 8.3 MG/DL (8.5-10.1) Alanine Aminotransferase 83 U/L (12-78) (ALT/SGPT) Alkaline Phosphatase 41 U/L (45-117) Total Protein 6.2 GM/DL (6.4-8.2) Albumin 2.7 GM/DL (3.4-5.0) PE at Discharge GENERAL: Well-nourished, well-developed pleasant young male patient in [facility]. SKIN: Warm and dry. LUE bicep region erythema/edema resolved. LLE foot with minimal erythema/edema, nontender, much improved. RLE foot erythema/edema resolved. No areas of induration/drainage. HEENT: Normocephalic. Atraumatic. Pupils equal and round. Mucous membranes pink and moist. CARDIOVASCULAR: Regular rate and rhythm. S1, S2 noted. No murmur appreciated. RESPIRATORY: No accessory muscle use. Clear to auscultation. Breath sounds equal bilaterally. GASTROINTESTINAL: Abdomen soft, non-tender, nondistended. Normoactive bowel sounds x4. MUSCULOSKELETAL: No obvious deformities. Extremities without clubbing, cyanosis , or edema. NEUROLOGICAL: Awake and alert. No obvious cranial nerve deficits. Normal speech. PSYCHIATRIC: Appropriate mood and affect; insight and judgment normal. Pt update on day of discharge Follow up for cellulitis. The patient reports feeling much better today. Denies any further episodes of diarrhea after receiving oxycodone. Denies fevers/ chills. He slept well. Tolerating oral intake. Cellulitis much improved, only minimal erythema at bilateral dorsal feet. Had long discussion regarding drug cessation. He states he is very familiar with [facility] and has been there in the past however it only works for him if he is motivated to quit. He is hesitant to say that he is going to stay clean but says he will try. Educated on his risk for sepsis, endocarditis, or even . Hospital Course 31 year-old male w/ a PMH of Hepatitis C, Tobacco Abuse and IVDU who was sent from [facility] for admission secondary to cellulitis. The patient was initially admitted to [facility] with suicidal ideations, placed under [place] Act. He was evaluated by ER MD who felt medical admission necessary due to extensive cellulitis on bilateral lower extremities and left upper extremity. He was started on IV Vanco and Zosyn. Given IV toradol for inflammation. Blood cultures negative x2days. He was evaluated by psychiatry, discussed with Dr. Medel, [place] Act lifted. He was started on Seroquel for mood stabilization. Admission complicated by RICKY, suspect secondary to dehydration vs vanco. He was given IVF and renal function improved. He also had signs of opioid withdrawal with night sweats, 3 episodes of diarrhea, and mild abdominal cramping. The withdrawal/diarrhea was relieved by oxycodone prn and symptoms improved. Cellulitis almost resolved on day of discharge. Discharged on bactrim 1tab po bid [id number]. Patient counseled on completing entire course of antibiotics. He was also extensively counseled on drug cessation. Pt Condition on Discharge: Stable Discharge Disposition: Discharge Home Discharge Time: > 30 minutes Discharge Instructions DIET: Follow Instructions for: As Tolerated, No Restrictions Activities you can perform: Regular-No Restrictions Follow up Referrals: Drug/Alcohol Rehab - 1 Week with [facility] PCP Follow-up - 1 Week with [facility] New Medications: Quetiapine (Quetiapine) 25 Mg Tab 50 MG PO BID Control Mood Swing Days 30 Ref 1 TAB Sulfamethoxazole-Trimethoprim (Sulfamethoxazole-Trimethoprim) 800-160 Mg Tab 1 TAB PO Q12HR Infection #20 TAB Anika Beckett PA-C Feb 02, 2017 10:11 am
--- NOTE | 2017-02-03 14:56 | PD.PSY.CON ---
Provisional Diagnosis Admission Date Jan 30, 2017 at 01:30 History of Present Illness Service Psychiatry Consult Requested By Reason for Consult Depression Primary Care Physician No Primary Care Physician HPI Late entry for 01/30/2017 The patient is a 31 year-old man, domiciled alone in [facility], employed , single, with psychiatric history of polysubstance dependence, including cannabis, heroine, cocaine, alcohol, IV user, no previous psychiatric hospitalizations, no previous suicidal attempts, he has been in the ER under [place] act before, significant medical history of Hepatitis C, who was sent from [facility] for admission secondary to cellulitis. Initially presented to ER w/ Suicidal Ideation, currently under [place] Act. Found to have LUE and Bilateral LE Cellulitis at previous injection sites, no abscess noted, s/p Bactrim PO and medically cleared however pt sent back to ER for medical admission due to extensive cellulitis. On arrival, BP 140/75, HR 96, O2 sat 98% on RA, Temp 99.0. WBC 11.3. Chemistry unremarkable except for K+ 3.3. Urine Drug Screen positive for Opiates, Cocaine and Marijuana. Alcohol negative. S/p Vanc/Zosyn in ER. On psychiatric evaluation today the patient presents irritable, kind of oppositional, guarded. She explains that yesterday he had a bad day, and he was feeling suicidal, but today he feels much better he just want to continue his medical treatment and get better. Patient reports feeling very uncomfortable, complaining, sweating," a lot of pain"due to opiate withdrawal. Patient reports sad mood, but denies anhedonia, denies hopelessness, denies hopelessness, denies suicidal and homicidal ideation. Patient reports mild anxiety related with his opiate withdrawal. Patient says that he is willing to accept his hospitalization, treatment and get better of his cellulitis. However , patient explains that he is going to be in withdrawal. He reports daily use of IV heroin, cocaine, cannabis and also alcohol. He fears to quantify the amount of drug use. Patient is oriented 3, no attention deficit, no gross cognitive impairment. 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", his highest level of education is high school Physical Exam Vital Signs Vital Signs Date Time Temp Pulse Resp B/P Pulse Ox O2 Delivery O2 Flow Rate FiO2 02/02/17 07:43 98.2 72 14 129/90 98 I/O 02/02/17 02/02/17 02/03/17 08:00 16:00 00:00 Intake Total 400 ml Balance 400 ml Mental Status Examination Speech: Unremarkable Orientation: x3 Memory: Unremarkable Thought Process: Logical Thought Content: Unremarkable Hallucination Type: None Suicidal Ideation: No Previous Suicide Attempts: No Homicidal Ideation: No Previous Homicide Attempts: No Insight: Good Affect: Good Mood: Appropriate Motor Activity: Normal gait Assessment & Plan Problem List: (1) Substance induced mood disorder Assessment & Plan: On psychiatric evaluation today the patient does not present any significant, acute or concerning symptomatology of depression, anxiety or psychosis that requires an immediate psychiatric attention. Recent does not meet criteria for psychiatric hospitalization. He denies suicidal and homicidal ideation, he denies visual and auditory hallucinations. Patient does present was seems to be symptoms of opiate withdrawal, generalized pain, malaise, nausea, sweating and some anxiety related with the withdrawal. His recent suicidal statement that lead to medical doctors in the ER [place] acting him is was probably secondary to acute substance intoxication rather to a primary psychiatric condition decompensation. Patient denies previous psychiatric history, he denies previous suicidal attempts and self harming behavior. Obviously, due to his sustained use of multiple drugs he carries an elevated chronic risk of suicidality and poor impulse control and even aggressive behavior. Patient also carries a high risk for manipulative and antisocial behavior. Since the patient is anticipated to spend some days in the hospital, I recommend Seroquel 50 mg twice a day to control impulses and gabapentin 300 mg 3 times a ICD Code: F19.94 Assessment & Plan Estimated LOS: Max Kothari MD Feb 03, 2017 14:56
== END 2017-02-02 11:46 | disposition home or self-care (01) | DRG 603 ==
LOC: NEPD 13:06 → NEDA 01-30 01:30 → NEPHCDU 01-30 03:35
PROVIDERS: ADMIT Hospitalist; ATTEND Hospitalist
DX: L03.116 Cellulitis of left lower limb (principal); N17.9 Acute kidney failure, unspecified; R45.851 Suicidal ideations; L03.114 Cellulitis of left upper limb; F11.23 Opioid dependence with withdrawal; L03.115 Cellulitis of right lower limb; E87.6 Hypokalemia; F17.200 Nicotine dependence, unspecified, uncomplicated; F11.24 Opioid dependence with opioid-induced mood disorder; B19.20 Unspecified viral hepatitis C without hepatic coma
CPT/HCPCS: 76937; 80048; 80053; 80202; 80307; 81001; 85025; 87040; J1650; J1885; J2060; J2405; J2543; J3370; J7030; J7050

== ENCOUNTER 2017-11-14 14:09 | Observation (INO) | payer SELFPAY ==
[~2017-11-14] VITALS: Ht 175.3 cm; Wt 82.0 kg
[~2017-11-14 14:09] MED LIST: QUET1TAB7 PO; SULF1TAB23 PO
[2017-11-14 14:43] VITALS: BP 138/82; PULSE 92; RESP 18; TEMP 99; O2SAT 97
--- NOTE | 2017-11-14 14:53 | PD ---
HPI Chief Complaint: Chest Pain Time Seen by Provider: 14:47 Travel History International Travel<30 days: No Contact w/Intl Traveler<30days: No Traveled to known affect area: No History of Present Illness HPI 31-year-old male with history of IV drug use, states to have last used 3 days before Mother's Day of this year, presents emergency department for evaluation of acute worsening of left-sided chest pain. Patient states that he has had some upper respiratory symptoms with chest aching over the last 3-4 days. He has had cough and chest congestion. States today while he is working he developed this left-sided chest pain, constant, worse with deep inspiration, sharp in nature. Denies any associated nausea, vomiting, lightheadedness, or diaphoresis. He denies any recent fever or chills. He denies any cardiac history. Patient has no other symptoms to report at this time. PFSH Past Medical History Hx Anticoagulant Therapy: No Arthritis: No Asthma: No Autoimmune Disease: No Anxiety: Yes Depression: Yes (he feels he has nothing ahead of him that is good) Heart Rhythm Problems: No Cancer: No Cardiovascular Problems: No High Cholesterol: No Chemotherapy: No Chest Pain: No Congestive Heart Failure: No COPD: No Cerebrovascular Accident: No Diabetes: No Diminished Hearing: No Endocrine: No Gastrointestinal Disorders: Yes GERD: No Genitourinary: No Hepatitis: Yes (C) Hiatal Hernia: No Immune Disorder: No Implanted Vascular Access Dvce: No Kidney Stones: No Musculoskeletal: Yes (weak and tired, feet hurt and arm is swollen) Neurologic: Yes (both feet are red and swollen and hurt) Psychiatric: No Reproductive: No Respiratory: No Migraines: No Radiation Therapy: No Renal Failure: No Seizures: No Sickle Cell Disease: No Sleep Apnea: No Thyroid Disease: No Ulcer: No ?: Not Past Surgical History Abdominal Surgery: No AICD: No Arteriovenous Shunt: No Cardiac Surgery: No Ear Surgery: No Endocrine Surgery: No Eye Surgery: No Genitourinary Surgery: No Gynecologic Surgery: No Insulin Pump: No Joint Replacement: No Oral Surgery: No Pacemaker: No Thoracic Surgery: No Other Surgery: Yes (had an absess drained on his arm once) Social History Alcohol Use: No Tobacco Use: Yes (1 PPD) Substance Use: Yes (uses heroin and pot (last time used mothers day)) Allergies-Medications (Allergen,Severity, Reaction): Coded Allergies: No Known Allergies (Verified Allergy, Unknown, 11/14/17) Reported Meds & Prescriptions Reported Meds & Active Scripts Active Review of Systems Except as stated in HPI: all other systems reviewed are Neg Physical Exam Narrative GENERAL: Well-nourished male patient, ambulatory and in no acute distress SKIN: Focused skin assessment warm/dry. HEAD: Atraumatic. Normocephalic. EYES: Pupils equal and round. No scleral icterus. No injection or drainage. ENT: No nasal bleeding or discharge. Mucous membranes pink and moist. NECK: Trachea midline. No JVD. CARDIOVASCULAR: Regular rate and rhythm. No murmur appreciated. RESPIRATORY: No accessory muscle use. Clear to auscultation. Breath sounds equal bilaterally. GASTROINTESTINAL: Abdomen soft, non-tender, nondistended. No guarding. No rebound tenderness. Hepatic and splenic margins not palpable. MUSCULOSKELETAL: No obvious deformities. No clubbing. No cyanosis. No edema. NEUROLOGICAL: Awake and alert. No obvious cranial nerve deficits. Motor grossly within normal limits. Normal speech. PSYCHIATRIC: Appropriate mood and affect; insight and judgment normal. Data Data Last Documented VS Vital Signs Date Time Temp Pulse Resp B/P (MAP) Pulse Ox O2 Delivery O2 Flow Rate FiO2 11/14/17 14:55 148/96 (113) 151/86 (107) 11/14/17 14:55 100 Room Air 11/14/17 14:54 100 24 11/14/17 14:43 99.0 Orders Orders Electrocardiogram (11/14/17 14:52) Ckmb (Isoenzyme) Profile (11/14/17 14:52) Complete Blood Count With Diff (11/14/17 14:52) Comprehensive Metabolic Panel (11/14/17 14:52) Magnesium (Mg) (11/14/17 14:52) Prothrombin Time / Inr (Pt) (11/14/17 14:52) Act Partial Throm Time (Ptt) (11/14/17 14:52) Troponin I (11/14/17 14:52) Lipase (11/14/17 14:52) Ecg Monitoring (11/14/17 14:52) Bilateral Bp Monitoring (11/14/17 14:52) Iv Access Insert/Monitor (11/14/17 14:52) Oximetry (11/14/17 14:52) Oxygen Administration (11/14/17 14:52) Aspirin Chew (Aspirin Chew) (11/14/17 15:00) Sodium Chloride 0.9% Flush (Ns Flush) (11/14/17 15:00) Chest, Pa & Lat (11/14/17 14:52) Lactic Acid Sepsis Protocol (11/14/17 14:52) Blood Culture (11/14/17 14:52) Sodium Chlor 0.9% 1000 Ml Inj (Ns 1000 M (11/14/17 15:00) Ketorolac Inj (Toradol Inj) (11/14/17 15:00) Urinalysis - C+S If Indicated (11/14/17 15:26) Drug Screen, Random Urine (11/14/17 15:26) Drug Screen, Random Urine (11/14/17 16:01) CKMB (11/14/17 14:57) CKMB% (11/14/17 14:57) Urine Culture (11/14/17 15:30) Vancomycin Inj (Vancomycin Inj) (11/14/17 17:15) Place In Observation (11/14/17 ) Diet Heart Healthy (11/14/17 Dinner) Vital Signs (Adult) ZEINA.Q4H (11/14/17 17:53) Activity Oob Ad Sandra (11/14/17 17:53) Echo 2d Comp With Doppler (11/14/17 ) Electrocardiogram (11/14/17 20:00) Electrocardiogram (11/15/17 02:00) Troponin I (11/14/17 20:00) Troponin I (11/15/17 02:00) Admit Order (Ed Use Only) (11/14/17 17:56) Labs Laboratory Tests Test 11/14/17 14:57 11/14/17 15:30 White Blood Count 8.1 TH/MM3 Red Blood Count 4.61 MIL/MM3 Hemoglobin 15.1 GM/DL Hematocrit 43.7 % Mean Corpuscular Volume 94.8 FL Mean Corpuscular Hemoglobin 32.7 PG Mean Corpuscular Hemoglobin Concent 34.5 % Red Cell Distribution Width 13.9 % Platelet Count 291 TH/MM3 Mean Platelet Volume 9.0 FL Neutrophils (%) (Auto) 51.2 % Lymphocytes (%) (Auto) 30.8 % Monocytes (%) (Auto) 10.5 % Eosinophils (%) (Auto) 6.9 % Basophils (%) (Auto) 0.6 % Neutrophils # (Auto) 4.2 TH/MM3 Lymphocytes # (Auto) 2.5 TH/MM3 Monocytes # (Auto) 0.9 TH/MM3 Eosinophils # (Auto) 0.6 TH/MM3 Basophils # (Auto) 0.0 TH/MM3 CBC Comment DIFF FINAL Differential Comment Prothrombin Time 10.0 SEC Prothromb Time International Ratio 1.0 RATIO Activated Partial Thromboplast Time 26.9 SEC Blood Urea Nitrogen 12 MG/DL Creatinine 1.31 MG/DL Random Glucose 71 MG/DL Total Protein 7.7 GM/DL Albumin 3.7 GM/DL Calcium Level 9.0 MG/DL Magnesium Level 2.1 MG/DL Alkaline Phosphatase 64 U/L Aspartate Amino Transf (AST/SGOT) 35 U/L Alanine Aminotransferase (ALT/SGPT) 78 U/L Total Bilirubin 0.4 MG/DL Sodium Level 141 MEQ/L Potassium Level 3.8 MEQ/L Chloride Level 101 MEQ/L Carbon Dioxide Level 32.9 MEQ/L Anion Gap 7 MEQ/L Estimat Glomerular Filtration Rate 64 ML/MIN Lactic Acid Level 1.1 mmol/L Total Creatine Kinase 174 U/L Creatine Kinase MB 1.0 NG/ML Troponin I LESS THAN 0.02 NG/ML Lipase 84 U/L Urine Color YELLOW Urine Turbidity HAZY Urine pH 7.0 Urine Specific [place] 1.018 Urine Protein NEG mg/dL Urine Glucose (UA) NEG mg/dL Urine Ketones NEG mg/dL Urine Occult Blood NEG Urine Nitrite NEG Urine Bilirubin NEG Urine Urobilinogen 2.0 MG/DL Urine Leukocyte Esterase SMALL Urine WBC 9 /hpf Urine Bacteria FEW /hpf Microscopic Urinalysis Comment CULTURE INDICATED Urine Opiates Screen NEG Urine Barbiturates Screen NEG Urine Amphetamines Screen NEG Urine Benzodiazepines Screen NEG Urine Cocaine Screen NEG Urine Cannabinoids Screen POS MDM Medical Decision Making Medical Screen Exam Complete: Yes Emergency Medical Condition: Yes Medical Record Reviewed: Yes Differential Diagnosis Endocarditis versus chest wall pain versus pleuritic pain versus pneumonia versus ACS Narrative Course 31-year-old male presents emergency department for evaluation of left-sided chest pain, acute onset. Patient appears well. He does have history of IV drug use, most recently used approximately 2 weeks ago. He is living in a senior care house. Laboratory Tests Test 11/14/17 14:57 11/14/17 15:30 White Blood Count 8.1 TH/MM3 Red Blood Count 4.61 MIL/MM3 Hemoglobin 15.1 GM/DL Hematocrit 43.7 % Mean Corpuscular Volume 94.8 FL Mean Corpuscular Hemoglobin 32.7 PG Mean Corpuscular Hemoglobin Concent 34.5 % Red Cell Distribution Width 13.9 % Platelet Count 291 TH/MM3 Mean Platelet Volume 9.0 FL Neutrophils (%) (Auto) 51.2 % Lymphocytes (%) (Auto) 30.8 % Monocytes (%) (Auto) 10.5 % Eosinophils (%) (Auto) 6.9 % Basophils (%) (Auto) 0.6 % Neutrophils # (Auto) 4.2 TH/MM3 Lymphocytes # (Auto) 2.5 TH/MM3 Monocytes # (Auto) 0.9 TH/MM3 Eosinophils # (Auto) 0.6 TH/MM3 Basophils # (Auto) 0.0 TH/MM3 CBC Comment DIFF FINAL Differential Comment Prothrombin Time 10.0 SEC Prothromb Time International Ratio 1.0 RATIO Activated Partial Thromboplast Time 26.9 SEC Blood Urea Nitrogen 12 MG/DL Creatinine 1.31 MG/DL Random Glucose 71 MG/DL Total Protein 7.7 GM/DL Albumin 3.7 GM/DL Calcium Level 9.0 MG/DL Magnesium Level 2.1 MG/DL Alkaline Phosphatase 64 U/L Aspartate Amino Transf (AST/SGOT) 35 U/L Alanine Aminotransferase (ALT/SGPT) 78 U/L Total Bilirubin 0.4 MG/DL Sodium Level 141 MEQ/L Potassium Level 3.8 MEQ/L Chloride Level 101 MEQ/L Carbon Dioxide Level 32.9 MEQ/L Anion Gap 7 MEQ/L Estimat Glomerular Filtration Rate 64 ML/MIN Lactic Acid Level 1.1 mmol/L Total Creatine Kinase 174 U/L Creatine Kinase MB 1.0 NG/ML Troponin I LESS THAN 0.02 NG/ML Lipase 84 U/L Urine Color YELLOW Urine Turbidity HAZY Urine pH 7.0 Urine Specific [place] 1.018 Urine Protein NEG mg/dL Urine Glucose (UA) NEG mg/dL Urine Ketones NEG mg/dL Urine Occult Blood NEG Urine Nitrite NEG Urine Bilirubin NEG Urine Urobilinogen 2.0 MG/DL Urine Leukocyte Esterase SMALL Urine WBC 9 /hpf Urine Bacteria FEW /hpf Microscopic Urinalysis Comment CULTURE INDICATED Urine Opiates Screen NEG Urine Barbiturates Screen NEG Urine Amphetamines Screen NEG Urine Benzodiazepines Screen NEG Urine Cocaine Screen NEG Urine Cannabinoids Screen POS Last Impressions Chest X-Ray 11/14/17 1452 Signed Impressions: CONCLUSION: No acute cardiopulmonary findings identified. Workup is essentially benign, however with history of IV drug use, despite normal lab work at this time, endocarditis is of concern. I discussed the patient my attending physician who is also assessed the patient and reviewed the lab work. We feel it is in his best interest to be admitted observation for further evaluation of his symptoms. Patient will be given IV vancomycin at this time. Diagnosis Primary Impression: Chest pain Qualified Codes: R07.9 - Chest pain, unspecified Additional Impression: IVDA (intravenous drug abuse) complicating Admitting Information Admitting Physician Requests: Observation Condition: Stable Anel Miller November 14, 2017 14:53
[2017-11-14 14:54] VITALS: BP 148/96; PULSE 100; RESP 24; O2SAT 100
[2017-11-14 14:55] VITALS: BP_SYST 148; BP_SYST 151; BP_DIAS 86; BP_DIAS 96; O2SAT 100
[2017-11-14] MEDS ORDERED: SODIUM CHLORIDE 0.9% FLUSH 10 ML FLUSH IVF PRN (15:00)
[2017-11-14] MEDS ORDERED: SODIUM CHLOR 0.9% 1000 ML INJ 1,000 ML IV ONE (15:00)
[2017-11-14] MEDS ORDERED: ASPIRIN 81 MG CHEW TAB PO ONE (15:00)
[2017-11-14] MEDS ORDERED: KETOROLAC TROMETHAMINE 30 MG/ML (IVP) VIAL IV PUSH ONE ×2 (15:00→21:15)
--- NOTE | 2017-11-14 15:57 | RADRPT ---
EXAM DATE: 11/14/2017 3:22 PM EDT AGE/SEX: 31 years / Male INDICATIONS: Chest pain when taking a deep breath, palpitations, congestion CLINICAL DATA: This is the patient's initial encounter. Patient reports that signs and symptoms have been present for 2 weeks and indicates a pain score of 8/10. MEDICAL/SURGICAL HISTORY: . MRSA, heroin use, swollen extremities, depression . arm abscess dr castro COMPARISON: No prior [facility] exams available for comparison. FINDINGS: PA and lateral views of the chest demonstrate the lungs to be symmetrically aerated without evidence of mass, infiltrate or effusion. The cardiomediastinal contours are unremarkable. Osseous structures demonstrate a mild scoliosis. CONCLUSION: No acute cardiopulmonary findings identified. Electronically signed by: Monty Zapata MD 11/14/2017 3:55 PM EDT
[2017-11-14 15:58] LABS: ALBUMIN 3.7 GM/DL (3.4-5.0); ALT (GPT) 78 U/L (12-78); AST (GOT) 35 U/L (15-37); BICARBONATE 32.9 MEQ/L (21.0-32.0); BLOOD UREA NITROGEN 12 MG/DL (7-18); CHLORIDE 101 MEQ/L (98-107); CREATININE 1.31 MG/DL (0.60-1.30); GLOMERULAR FILTRATION RATE 64 ML/MIN (>89); GLUCOSE,RANDOM 71 MG/DL (74-106); MAGNESIUM 2.1 MG/DL (1.5-2.5); SODIUM (NA) 141 MEQ/L (136-145)
[2017-11-14 16:00] LABS: AUTOMATED NEUTROPHIL # 4.2 TH/MM3 (1.8-7.7); BASOPHIL % 0.6 % (0.0-2.0); EOSINOPHIL # 0.6 TH/MM3 (0-0.4); EOSINOPHIL % 6.9 % (0.0-4.0); HEMATOCRIT 43.7 % (39.0-51.0); HEMOGLOBIN 15.1 GM/DL (13.0-17.0); LYMPH % 30.8 % (9.0-44.0); LYMPHOCYTE # 2.5 TH/MM3 (1.0-4.8); MEAN CELL VOLUME 94.8 FL (80.0-100.0); MEAN CORPUSCULAR HEMOGLOBIN 32.7 PG (27.0-34.0); MEAN CORPUSCULAR HGB CONC 34.5 % (32.0-36.0); MONO % 10.5 % (0.0-8.0); MONOCYTE # 0.9 TH/MM3 (0-0.9); NEUT % 51.2 % (16.0-70.0); PLATELET COUNT 291 TH/MM3 (150-450); RED BLOOD COUNT 4.61 MIL/MM3 (4.50-5.90); RED CELL DISTRIBUTION WIDTH 13.9 % (11.6-17.2); WHITE BLOOD COUNT 8.1 TH/MM3 (4.0-11.0)
[2017-11-14 16:02] LABS: ALKALINE PHOSPHATASE 64 U/L (45-117); TOTAL BILIRUBIN ADULT 0.4 MG/DL (0.2-1.0); TOTAL PROTEIN 7.7 GM/DL (6.4-8.2); TROPONIN I LESS THAN 0.02 NG/ML (0.02-0.05)
[2017-11-14 16:24] LABS: BACTERIA, URINE FEW /hpf; BILIRUBIN, URINE NEG (NEG); BLOOD, URINE NEG (NEG); GLUCOSE,URINE NEG (NEG); KETONE, URINE NEG (NEG); NITRITE,URINE NEG (NEG); URINE COLOR YELLOW (YELLW/STRAW); URINE LEUKOCYTE ESTERASE SMALL (NEG)
[2017-11-14] MEDS ORDERED: VANCOMYCIN INJ 1,000 MG in SODIUM CHLOR 0.9% 250 ML INJ 250 ML IV ONE (17:15)
--- NOTE | 2017-11-14 18:06 | PD ---
Physical Exam Narrative GENERAL: 31 y/o male in no apparent distress SKIN: Focused skin assessment warm/dry. HEAD: Atraumatic. Normocephalic. EYES: Pupils equal and round. No scleral icterus. No injection or drainage. ENT: No nasal bleeding or discharge. Mucous membranes pink and moist. NECK: Trachea midline. No JVD. CARDIOVASCULAR: Regular rate and rhythm. RESPIRATORY: No accessory muscle use. Clear to auscultation. Breath sounds equal bilaterally. GASTROINTESTINAL: Abdomen soft, non-tender, nondistended. Hepatic and splenic margins not palpable. MUSCULOSKELETAL: No obvious deformities. No clubbing. No cyanosis. NEUROLOGICAL: Awake and alert. No obvious cranial nerve deficits. Motor grossly within normal limits. Normal speech. PSYCHIATRIC: Appropriate mood and affect; insight and judgment normal. Data Data Last Documented VS Vital Signs Date Time Temp Pulse Resp B/P (MAP) Pulse Ox O2 Delivery O2 Flow Rate FiO2 11/14/17 14:55 148/96 (113) 151/86 (107) 11/14/17 14:55 100 Room Air 11/14/17 14:54 100 24 11/14/17 14:43 99.0 Orders Orders Electrocardiogram (11/14/17 14:52) Ckmb (Isoenzyme) Profile (11/14/17 14:52) Complete Blood Count With Diff (11/14/17 14:52) Comprehensive Metabolic Panel (11/14/17 14:52) Magnesium (Mg) (11/14/17 14:52) Prothrombin Time / Inr (Pt) (11/14/17 14:52) Act Partial Throm Time (Ptt) (11/14/17 14:52) Troponin I (11/14/17 14:52) Lipase (11/14/17 14:52) Ecg Monitoring (11/14/17 14:52) Bilateral Bp Monitoring (11/14/17 14:52) Iv Access Insert/Monitor (11/14/17 14:52) Oximetry (11/14/17 14:52) Oxygen Administration (11/14/17 14:52) Aspirin Chew (Aspirin Chew) (11/14/17 15:00) Sodium Chloride 0.9% Flush (Ns Flush) (11/14/17 15:00) Chest, Pa & Lat (11/14/17 14:52) Lactic Acid Sepsis Protocol (11/14/17 14:52) Blood Culture (11/14/17 14:52) Sodium Chlor 0.9% 1000 Ml Inj (Ns 1000 M (11/14/17 15:00) Ketorolac Inj (Toradol Inj) (11/14/17 15:00) Urinalysis - C+S If Indicated (11/14/17 15:26) Drug Screen, Random Urine (11/14/17 15:26) Drug Screen, Random Urine (11/14/17 16:01) CKMB (11/14/17 14:57) CKMB% (11/14/17 14:57) Urine Culture (11/14/17 15:30) Vancomycin Inj (Vancomycin Inj) (11/14/17 17:15) Place In Observation (11/14/17 ) Diet Heart Healthy (11/14/17 Dinner) Vital Signs (Adult) ZEINA.Q4H (11/14/17 17:53) Activity Oob Ad Sandra (11/14/17 17:53) Echo 2d Comp With Doppler (11/14/17 ) Electrocardiogram (11/14/17 20:00) Electrocardiogram (11/15/17 02:00) Troponin I (11/14/17 20:00) Troponin I (11/15/17 02:00) Admit Order (Ed Use Only) (11/14/17 17:56) Labs Laboratory Tests Test 11/14/17 14:57 11/14/17 15:30 White Blood Count 8.1 TH/MM3 Red Blood Count 4.61 MIL/MM3 Hemoglobin 15.1 GM/DL Hematocrit 43.7 % Mean Corpuscular Volume 94.8 FL Mean Corpuscular Hemoglobin 32.7 PG Mean Corpuscular Hemoglobin Concent 34.5 % Red Cell Distribution Width 13.9 % Platelet Count 291 TH/MM3 Mean Platelet Volume 9.0 FL Neutrophils (%) (Auto) 51.2 % Lymphocytes (%) (Auto) 30.8 % Monocytes (%) (Auto) 10.5 % Eosinophils (%) (Auto) 6.9 % Basophils (%) (Auto) 0.6 % Neutrophils # (Auto) 4.2 TH/MM3 Lymphocytes # (Auto) 2.5 TH/MM3 Monocytes # (Auto) 0.9 TH/MM3 Eosinophils # (Auto) 0.6 TH/MM3 Basophils # (Auto) 0.0 TH/MM3 CBC Comment DIFF FINAL Differential Comment Prothrombin Time 10.0 SEC Prothromb Time International Ratio 1.0 RATIO Activated Partial Thromboplast Time 26.9 SEC Blood Urea Nitrogen 12 MG/DL Creatinine 1.31 MG/DL Random Glucose 71 MG/DL Total Protein 7.7 GM/DL Albumin 3.7 GM/DL Calcium Level 9.0 MG/DL Magnesium Level 2.1 MG/DL Alkaline Phosphatase 64 U/L Aspartate Amino Transf (AST/SGOT) 35 U/L Alanine Aminotransferase (ALT/SGPT) 78 U/L Total Bilirubin 0.4 MG/DL Sodium Level 141 MEQ/L Potassium Level 3.8 MEQ/L Chloride Level 101 MEQ/L Carbon Dioxide Level 32.9 MEQ/L Anion Gap 7 MEQ/L Estimat Glomerular Filtration Rate 64 ML/MIN Lactic Acid Level 1.1 mmol/L Total Creatine Kinase 174 U/L Creatine Kinase MB 1.0 NG/ML Troponin I LESS THAN 0.02 NG/ML Lipase 84 U/L Urine Color YELLOW Urine Turbidity HAZY Urine pH 7.0 Urine Specific [place] 1.018 Urine Protein NEG mg/dL Urine Glucose (UA) NEG mg/dL Urine Ketones NEG mg/dL Urine Occult Blood NEG Urine Nitrite NEG Urine Bilirubin NEG Urine Urobilinogen 2.0 MG/DL Urine Leukocyte Esterase SMALL Urine WBC 9 /hpf Urine Bacteria FEW /hpf Microscopic Urinalysis Comment CULTURE INDICATED Urine Opiates Screen NEG Urine Barbiturates Screen NEG Urine Amphetamines Screen NEG Urine Benzodiazepines Screen NEG Urine Cocaine Screen NEG Urine Cannabinoids Screen POS MDM Supervised Visit with MELLY: Yes Interpretation(s) CBC & BMP Diagram 11/14/17 14:57 Total Protein 7.7, Albumin 3.7, Calcium Level 9.0, Magnesium Level 2.1, Alkaline Phosphatase 64, Aspartate Amino Transf (AST/SGOT) 35, Alanine Aminotransferase (ALT/SGPT) 78, Total Bilirubin 0.4 Last 24 hours Impressions Chest X-Ray 11/14/17 1452 Signed Impressions: CONCLUSION: No acute cardiopulmonary findings identified. Narrative Course I, Dr. basurto, have reviewed the advance practice practitioner's documentation and am in agreement, met with the patient face to face, made the diagnosis, and the medical decision making was done by me. *My assessment and Findings: 31-year-old male presents with chest pain over the past couple of days. He admits to IV drug abuse. Initial testing without emergent process. Agrees to observation for further care given risk of endocarditis Diagnosis Primary Impression: Chest pain Qualified Codes: R07.9 - Chest pain, unspecified Additional Impression: IVDA (intravenous drug abuse) complicating Condition: Stable Azalea Basurto MD November 14, 2017 18:06
[2017-11-14 20:41] VITALS: BP 137/78; PULSE 75; RESP 16; TEMP 97.8; O2SAT 76
[2017-11-14] MEDS ORDERED: cefTRIAXone INJ 1,000 MG in SODIUM CHLORIDE 0.9% INJ 100 ML IV ONE (21:15)
--- NOTE | 2017-11-14 21:41 | HHI.HP ---
HPI Service CP Hospitalists Primary Care Physician Unknown Admission Diagnosis chest pain; IVDA; R/O endocarditis Chief Complaint: chest pain...worse with deep breathing Travel History International Travel<30 Days: No Contact w/Intl Traveler <30 Da: No Traveled to Known Affected Are: No History of Present Illness 31-year-old male with history of IV drug use, states to have last used 3 days before Mother's Day of this year, presents emergency department for evaluation of acute worsening of left-sided chest pain. Patient states that he has had some upper respiratory symptoms with chest aching over the last 10 days, but worse over the last 3 days. He has had cough and chest congestion. States today while he is working he developed this left-sided chest pain, constant, worse with deep inspiration, sharp in nature. Blood pressure was reported in the 170s over low 100s at that time. No radiation of pain. Pain is pinpoint in his left lower chest and rib cage. Worse with lying on the left side. Denies rash. Denies any associated nausea, vomiting, lightheadedness, or diaphoresis. He denies any recent fever or chills. He denies any cardiac history. Patient has no other symptoms to report at this time. Review of Systems Constitutional: COMPLAINS OF: Fatigue, DENIES: Diaphoretic episodes, Fever, Weight gain, Weight loss, Chills, Dizziness, Change in appetite, Night Sweats Endocrine: DENIES: Heat/cold intolerance, Polydipsia, Polyuria, Polyphagia Eyes: DENIES: Blurred vision, Diplopia, Eye inflammation, Eye pain, Vision loss , Photosensitivity, Double Vision Ears, nose, mouth, throat: DENIES: Tinnitus, Hearing loss, Vertigo, Nasal discharge, Oral lesions, Throat pain, Hoarseness, Ear Pain, Running Nose, Epistaxis, Sinus Pain, Toothache, Odynophagia Respiratory: COMPLAINS OF: Cough, DENIES: Apneas, Snoring, Wheezing, Hemoptysis , Sputum production, Shortness of breath Cardiovascular: COMPLAINS OF: Chest pain, DENIES: Palpitations, Syncope, Dyspnea on Exertion, PND, Lower Extremity Edema, Orthopnea, Claudication Gastrointestinal: DENIES: Abdominal pain, Black stools, Bloody stools, BRB per rectum, Constipation, Diarrhea, GERD, Nausea, Reflux, Vomiting, Difficulty Swallowing, Anorexia, See HPI Musculoskeletal: DENIES: Joint pain, Muscle aches, Stiffness, Joint Swelling, Back pain, Neck pain Integumentary: DENIES: Abnormal pigmentation, Nail changes, Pruritus, Rash Hematologic/lymphatic: DENIES: Bruising, Lymphadenopathy Immunologic/allergic: DENIES: Eczema, Urticaria Neurologic: DENIES: Abnormal gait, Headache, Localized weakness, Paresthesias, Seizures, Speech Problems, Tremor, Poor Balance Psychiatric: COMPLAINS OF: Anxiety, DENIES: Confusion, Mood changes, Depression , Hallucinations, Agitation, Suicidal Ideation, Homicidal Ideation, Delusions, History of Bipolar, History of Schizophrenia Past Family Social History Past Medical History Anxiety IV drug abuse Questionable bipolar disorder Past Surgical History I&D abscess left forearm Reported Medications Gabapentin 800 mg 3 times daily Allergies: Coded Allergies: No Known Allergies (Verified Allergy, Unknown, 11/14/17) Family History Father had coronary artery bypass graft in his late 60s otherwise reports negative family history Social History Smokes approximately 10 cigarettes per day and has done so for over 10 years Previously drank alcohol heavily at times but has not been drinking over the last few months Is done IV drugs on several occasions but had been abstinent for months until July or August of this year when he resumed. He has done IV cocaine but prefers heroin. Last use was reportedly approximately 2 weeks ago Living and assisted house currently Has 4-year-old son who is visiting his grandmother in [place] currently Works at local car dealership Originally from [place], has been in this area for approximately 4 years Physical Exam Vital Signs Vital Signs Date Time Temp Pulse Resp B/P (MAP) Pulse Ox O2 Delivery O2 Flow Rate FiO2 11/14/17 20:41 97.8 75 16 137/78 (97) 76 11/14/17 19:30 11/14/17 14:55 148/96 (113) 151/86 (107) 11/14/17 14:55 100 Room Air 11/14/17 14:54 100 24 148/96 (113) 100 Room Air 11/14/17 14:48 Room Air 11/14/17 14:43 99.0 92 18 138/82 (100) 97 Physical Exam GENERAL: This is a well-nourished, well-developed patient, in no apparent distress. Cooperative. Pleasant. Alert and oriented. SKIN: Left forearm with postsurgical scarring. Cool and dry. No petechiae or subungual hemorrhages. No [place] lesions. HEAD: Atraumatic. Normocephalic. No temporal or scalp tenderness. EYES: Pupils equal round and reactive. Extraocular motions intact. No scleral icterus. No injection or drainage. ENT: Nose without bleeding, purulent drainage or septal hematoma. Airway patent. NECK: Trachea midline. No JVD or lymphadenopathy. Supple, nontender, no meningeal signs. CARDIOVASCULAR: Regular rate and rhythm without murmurs, gallops, or rubs. RESPIRATORY: Clear to auscultation. Breath sounds equal bilaterally. No wheezes , rales, or rhonchi. GASTROINTESTINAL: Abdomen soft, non-tender, nondistended. No hepato-splenomegaly , or palpable masses. No guarding. MUSCULOSKELETAL: Extremities without clubbing, cyanosis, or edema. No joint tenderness, effusion, or edema noted. No calf tenderness. Left rib cage with tenderness palpation around the fifth 6 ribs near the sternal costal border and just lateral to that. NEUROLOGICAL: Awake and alert. Cranial nerves II through XII intact. Motor and sensory grossly within normal limits. Five out of 5 muscle strength in all muscle groups. Normal speech. Laboratory Laboratory Tests Test 11/14/17 14:57 11/14/17 15:30 White Blood Count 8.1 Red Blood Count 4.61 Hemoglobin 15.1 Hematocrit 43.7 Mean Corpuscular Volume 94.8 Mean Corpuscular Hemoglobin 32.7 Mean Corpuscular Hemoglobin Concent 34.5 Red Cell Distribution Width 13.9 Platelet Count 291 Mean Platelet Volume 9.0 Neutrophils (%) (Auto) 51.2 Lymphocytes (%) (Auto) 30.8 Monocytes (%) (Auto) 10.5 Eosinophils (%) (Auto) 6.9 Basophils (%) (Auto) 0.6 Neutrophils # (Auto) 4.2 Lymphocytes # (Auto) 2.5 Monocytes # (Auto) 0.9 Eosinophils # (Auto) 0.6 Basophils # (Auto) 0.0 CBC Comment DIFF FINAL Differential Comment Prothrombin Time 10.0 Prothromb Time International Ratio 1.0 Activated Partial Thromboplast Time 26.9 Blood Urea Nitrogen 12 Creatinine 1.31 Random Glucose 71 Total Protein 7.7 Albumin 3.7 Calcium Level 9.0 Magnesium Level 2.1 Alkaline Phosphatase 64 Aspartate Amino Transf (AST/SGOT) 35 Alanine Aminotransferase (ALT/SGPT) 78 Total Bilirubin 0.4 Sodium Level 141 Potassium Level 3.8 Chloride Level 101 Carbon Dioxide Level 32.9 Anion Gap 7 Estimat Glomerular Filtration Rate 64 Lactic Acid Level 1.1 Total Creatine Kinase 174 Creatine Kinase MB 1.0 Troponin I LESS THAN 0.02 Lipase 84 Urine Color YELLOW Urine Turbidity HAZY Urine pH 7.0 Urine Specific [place] 1.018 Urine Protein NEG Urine Glucose (UA) NEG Urine Ketones NEG Urine Occult Blood NEG Urine Nitrite NEG Urine Bilirubin NEG Urine Urobilinogen 2.0 Urine Leukocyte Esterase SMALL Urine WBC 9 Urine Bacteria FEW Microscopic Urinalysis Comment CULTURE INDICATED Urine Opiates Screen NEG Urine Barbiturates Screen NEG Urine Amphetamines Screen NEG Urine Benzodiazepines Screen NEG Urine Cocaine Screen NEG Urine Cannabinoids Screen POS Date/Time Source Procedure Growth Status 11/14/17 15:10 Blood Peripheral Aerobic Blood Culture Pending Received 11/14/17 15:10 Blood Peripheral Anaerobic Blood Culture Pending Received 11/14/17 15:30 Urine Clean Catch Urine Culture Pending Received Result Diagram: 11/14/17 1457 11/14/17 1457 Imaging Last 72 hours Impressions Chest X-Ray 11/14/17 1452 Signed Impressions: CONCLUSION: No acute cardiopulmonary findings identified. Caprini VTE Risk Assessment Caprini VTE Risk Assessment: No/Low Risk (score <= 1) Caprini Risk Assessment Model Point Value = 1 Point Value = 2 Point Value = 3 Point Value = 5 Age 41-60 Minor surgery BMI > 25 kg/m2 Swollen legs Varicose veins or History of unexplained or recurrent spontaneous Oral contraceptives or hormone replacement Sepsis (< 1 month) Serious lung disease, including pneumonia (< 1 month) Abnormal pulmonary function Acute myocardial infarction Congestive heart failure (< 1 month) History of inflammatory bowel disease Medical patient at bed rest Age 61-74 Arthroscopic surgery Major open surgery (> 45 min) Laparoscopic surgery (> 45 min) Malignancy Confined to bed (> 72 hours) Immobilizing plaster cast Central venous access Age >= 75 History of VTE Family history of VTE Factor V Leiden Prothrombin [id number] Lupus anticoagulant Anticardiolipin antibodies Elevated serum homocysteine Heparin-induced thrombocytopenia Other congenital or acquired thrombophilia Stroke (< 1 month) Elective arthroplasty Hip, pelvis, or leg fracture Acute spinal cord injury (< 1 month) Prophylaxis Regimen Total Risk Factor Score Risk Level Prophylaxis Regimen 0-1 Low Early ambulation 2 Moderate Order ONE of the following: *Sequential Compression Device (SCD) *Heparin 5000 units SQ BID 3-4 Higher Order ONE of the following medications: *Heparin 5000 units SQ TID *Enoxaparin/Lovenox 40 mg SQ daily (WT < 150 kg, CrCl > 30 mL/min) *Enoxaparin/Lovenox 30 mg SQ daily (WT < 150 kg, CrCl > 10-29 mL/min) *Enoxaparin/Lovenox 30 mg SQ BID (WT < 150 kg, CrCl > 30 mL/min) AND/OR *Sequential Compression Device (SCD) 5 or more Highest Order ONE of the following medications: *Heparin 5000 units SQ TID (Preferred with Epidurals) *Enoxaparin/Lovenox 40 mg SQ daily (WT < 150 kg, CrCl > 30 mL/min) *Enoxaparin/Lovenox 30 mg SQ daily (WT < 150 kg, CrCl > 10-29 mL/min) *Enoxaparin/Lovenox 30 mg SQ BID (WT < 150 kg, CrCl > 30 mL/min) AND *Sequential Compression Device (SCD) Assessment and Plan Problem List: (1) Chest pain ICD Codes: R07.9 - Chest pain, unspecified Status: Acute Plan: Atypical and more consistent with pleuritic. Had good relief with Toradol earlier. We will give 1 more dose of Toradol and then 1 dose of oral prednisone. We will hold off on more Toradol given his slightly elevated creatinine. Recheck renal indices tomorrow morning. Rule out with enzymes and EKG although I do not strongly suspect cardiac ischemic etiology. Echo ordered. (2) Substance abuse ICD Codes: F19.10 - Other psychoactive substance abuse, uncomplicated Status: Chronic Plan: Counseled patient to stop. He is in a assisted house and wishes to have more counseling as outpatient. He understands the risks to his health. NicoDerm patch written. Code Status Full Discussed Condition With Patient and ER provider Problem Qualifiers (1) Chest pain: Qualified Codes: R07.9 - Chest pain, unspecified Manish Leary MD PhD November 14, 2017 21:41
[2017-11-14] MEDS ORDERED: predniSONE 20 MG TAB PO ONE (21:45)
[2017-11-14] MEDS: GABAPENTIN 400 MG CAP PO SCH (22:44)
[2017-11-15 00:18] VITALS: BP 118/67; PULSE 81; RESP 16; TEMP 98; O2SAT 91
[2017-11-15 04:04] VITALS: BP 109/74; PULSE 90; RESP 16; TEMP 98; O2SAT 95
[2017-11-15 07:30] LABS: BICARBONATE 27.6 MEQ/L (21.0-32.0); BLOOD UREA NITROGEN 13 MG/DL (7-18); CALCIUM 9.5 MG/DL (8.5-10.1); CHLORIDE 102 MEQ/L (98-107); CREATININE 0.96 MG/DL (0.60-1.30); GLOMERULAR FILTRATION RATE 92 ML/MIN (>89); GLUCOSE,RANDOM 120 MG/DL (74-106); SODIUM (NA) 140 MEQ/L (136-145)
[2017-11-15 07:34] LABS: TROPONIN I LESS THAN 0.02 NG/ML (0.02-0.05)
[2017-11-15 07:57] VITALS: BP 120/79; PULSE 71; RESP 18; TEMP 97.8; O2SAT 97
[2017-11-15] MEDS: GABAPENTIN 400 MG CAP PO SCH ×2 (08:11→13:19)
--- NOTE | 2017-11-15 08:51 | HHI.PR ---
Subjective Remarks Pt reports that the left chest wall pain is still present but not as severe as yesterday He denies any nausea/vomiting, abdominal pain, SOB, or palpitations The pin point chest wall pain is worse with deep inspirations. He reports no BM in 4 days but +flatus. Objective Vitals Vital Signs Date Time Temp Pulse Resp B/P (MAP) Pulse Ox O2 Delivery O2 Flow Rate FiO2 11/15/17 07:57 97.8 71 18 120/79 (93) 97 11/15/17 04:04 98.0 90 16 109/74 (86) 95 11/15/17 00:18 98.0 81 16 118/67 (84) 91 11/14/17 20:41 97.8 75 16 137/78 (97) 76 11/14/17 19:30 11/14/17 14:55 148/96 (113) 151/86 (107) 11/14/17 14:55 100 Room Air 11/14/17 14:54 100 24 148/96 (113) 100 Room Air 11/14/17 14:48 Room Air 11/14/17 14:43 99.0 92 18 138/82 (100) 97 11/15/17 11/15/17 11/16/17 15:00 23:00 07:00 Intake Total 350 ml Balance 350 ml Intake IV Total 350 ml Result Diagram: 11/14/17 1457 11/15/17 0521 Other Results Laboratory Tests Test 11/14/17 14:57 11/14/17 15:30 11/14/17 21:47 11/15/17 05:21 White Blood Count 8.1 TH/MM3 Red Blood Count 4.61 MIL/MM3 Hemoglobin 15.1 GM/DL Hematocrit 43.7 % Mean Corpuscular Volume 94.8 FL Mean Corpuscular Hemoglobin 32.7 PG Mean Corpuscular Hemoglobin Concent 34.5 % Red Cell Distribution Width 13.9 % Platelet Count 291 TH/MM3 Mean Platelet Volume 9.0 FL Neutrophils (%) (Auto) 51.2 % Lymphocytes (%) (Auto) 30.8 % Monocytes (%) (Auto) 10.5 % Eosinophils (%) (Auto) 6.9 % Basophils (%) (Auto) 0.6 % Neutrophils # (Auto) 4.2 TH/MM3 Lymphocytes # (Auto) 2.5 TH/MM3 Monocytes # (Auto) 0.9 TH/MM3 Eosinophils # (Auto) 0.6 TH/MM3 Basophils # (Auto) 0.0 TH/MM3 CBC Comment DIFF FINAL Differential Comment Prothrombin Time 10.0 SEC Prothromb Time International Ratio 1.0 RATIO Activated Partial Thromboplast Time 26.9 SEC Blood Urea Nitrogen 12 MG/DL 13 MG/DL Creatinine 1.31 MG/DL 0.96 MG/DL Random Glucose 71 MG/DL 120 MG/DL Total Protein 7.7 GM/DL Albumin 3.7 GM/DL Calcium Level 9.0 MG/DL 9.5 MG/DL Magnesium Level 2.1 MG/DL Alkaline Phosphatase 64 U/L Aspartate Amino Transf (AST/SGOT) 35 U/L Alanine Aminotransferase (ALT/SGPT) 78 U/L Total Bilirubin 0.4 MG/DL Sodium Level 141 MEQ/L 140 MEQ/L Potassium Level 3.8 MEQ/L 4.3 MEQ/L Chloride Level 101 MEQ/L 102 MEQ/L Carbon Dioxide Level 32.9 MEQ/L 27.6 MEQ/L Anion Gap 7 MEQ/L 10 MEQ/L Estimat Glomerular Filtration Rate 64 ML/MIN 92 ML/MIN Lactic Acid Level 1.1 mmol/L Total Creatine Kinase 174 U/L Creatine Kinase MB 1.0 NG/ML Troponin I LESS THAN 0.02 NG/ML LESS THAN 0.02 NG/ML LESS THAN 0.02 NG/ML Lipase 84 U/L Urine Color YELLOW Urine Turbidity HAZY Urine pH 7.0 Urine Specific [place] 1.018 Urine Protein NEG mg/dL Urine Glucose (UA) NEG mg/dL Urine Ketones NEG mg/dL Urine Occult Blood NEG Urine Nitrite NEG Urine Bilirubin NEG Urine Urobilinogen 2.0 MG/DL Urine Leukocyte Esterase SMALL Urine WBC 9 /hpf Urine Bacteria FEW /hpf Microscopic Urinalysis Comment CULTURE INDICATED Urine Opiates Screen NEG Urine Barbiturates Screen NEG Urine Amphetamines Screen NEG Urine Benzodiazepines Screen NEG Urine Cocaine Screen NEG Urine Cannabinoids Screen POS Imaging Last 72 hours Impressions Chest X-Ray 11/14/17 1452 Signed Impressions: CONCLUSION: No acute cardiopulmonary findings identified. Objective Remarks General: NAD, AAOx3 Chest: CTA bilaterally, pin point left lower chest wall/rib pain tender to palpation Cardiac: Regular Abd: +BS, soft ND/NT Ext: No edema A/P Problem List: (1) Costochondritis ICD Codes: M94.0 - Chondrocostal junction syndrome [Tietze] Status: Acute Plan: - Pt is a 31 y/o WM with hx of IVDA, tobacco use, and anxiety. He presented to the ED at [facility] on 11/14/17 for evaluation of acute worsening of left-sided chest pain x 10 days. - Patient states that he has had some upper respiratory symptoms with chest aching over the last 10 days, but worse over the last 3 days. He has had cough and chest congestion but reports that this began after the chest wall pain started. - This seems to be more of a pleuritic pain/chest wall pain which is worse with deep inspiration or coughing. Pain is pinpoint in his left lower chest and rib cage. Worse with lying on the left side - He has had good relief with Toradol x 2 doses and 1 dose of oral prednisone but still some residual pain - We will give him Naproxen today x 2 doses. - Pt was ruled out with negative enzymes. - Echo performed prior to discharge and this will be followed up on - Pt will need to followup with his PCP at the [facility] within 1 week. - Pt requested a refill of his Gabapentin 800mg TID which he reportedly takes as a mood stabilizer, pt provided with one month supply and will need to followup with his PCP regarding this as well. (2) Chest pain ICD Codes: R07.9 - Chest pain, unspecified Status: Acute Plan: - See above (3) Substance abuse ICD Codes: F19.10 - Other psychoactive substance abuse, uncomplicated Status: Chronic Plan: - Counseled patient to stop. - He is in a [facility] and wishes to have more counseling as outpatient. He understands the risks to his health. - NicoDerm patch written. (4) UTI (urinary tract infection) ICD Codes: N39.0 - Urinary tract infection, site not specified Status: Acute Plan: - Pt reports a 2 week hx of foul smelling, dark urine. - His UA was abnormal and his urine culture is growing, >100,000cfu/mL gram negative rods - We will discharge on Levaquin 500mg po daily x 10 days and followup on the cultures Assessment and Plan Patient examined. Assessment and plan formulated with Autumn Hopper PA-C. I agree with the above. gnr uti. abx. fu cx. naprosyn for chostochondritis echo pending. not suspecting endocarditis pt admits to injecting heroin/cocaine. blood cx ngtd f/u cx's. d/c home. Problem Qualifiers (1) Chest pain: Qualified Codes: R07.9 - Chest pain, unspecified Autumn Hopper November 15, 2017 08:51 Twan Doherty MD November 15, 2017 16:28
[2017-11-15] MEDS ORDERED: NAPROXEN 500 MG TAB PO SCH (09:00)
[2017-11-15] MEDS ORDERED: REMOVE OLD PATCH T-DERMAL SCH (09:00)
[2017-11-15] MEDS ORDERED: NICOTINE 7 MG/24 HR PATCH T-DERMAL SCH (09:00)
[2017-11-15 11:46] VITALS: BP 131/65; PULSE 73; RESP 18; TEMP 98; O2SAT 97
[2017-11-15] MEDS ORDERED: NICOTINE 14 MG/24 HR PATCH T-DERMAL SCH (12:00)
[2017-11-15] MEDS ORDERED: NAPR500 PO (14:02)
--- NOTE | 2017-11-15 14:03 | HHI.DCPOC ---
Discharge Care Plan Diagnosis: (1) Costochondritis (2) Chest pain (3) IVDA (intravenous drug abuse) complicating Goals to Promote Your Health * To prevent worsening of your condition and complications * To maintain your health at the optimal level Directions to Meet Your Goals Take your medications as prescribed Follow your dietary instruction Follow activity as directed Keep your appointments as scheduled Take your immunizations and boosters as scheduled If your symptoms worsen call your PCP, if no PCP go to Urgent Care Center or Emergency Room Smoking is Dangerous to Your Health. Avoid second hand smoke Call the 24-hour hour crisis hotline for domestic abuse at Autumn Hoppre November 15, 2017 14:03
--- NOTE | 2017-11-15 14:17 | EKG ---
Date Performed: 11/14/2017 Time Performed: 14:50:47 PTAGE: 31 years EKG: Sinus rhythm NONSPECIFIC T-WAVE ABNORMALITY BORDERLINE ECG INTERPRETATION BASED ON A DEFAULT AGE OF 40 YEARS PREVIOUS TRACING : 03/14/2016 12.04 DOCTOR: Mickey Pacheco Interpretating Date/Time 11/17/2017 07:43:52
[2017-11-15] MEDS ORDERED: NEUR400C PO (15:05)
--- NOTE | 2017-11-15 15:31 | ECHRPT ---
Indication: Chest pain, unspecified CONCLUSIONS Normal left ventricular size and wall thickness. The left ventricular systolic function is normal wi th an estimated ejection fraction in the range of 60-65%. Left ventricular diastolic function parameters a re normal. Trivial pulmonary valve regurgitation. BP: 120 / 79 HR: 71 Rhythm: Sinus MEASUREMENTS (Male / Female) Normal Values Technical Quality:Good 2D ECHO LV Diastolic Diameter PLAX 4.8 cm 4.2 - 5.9 / 3.9 - 5.3 cm LV Systolic Diameter PLAX 3.4 cm IVS Diastolic Thickness 1.1 cm 0.6 - 1.0 / 0.6 - 0.9 cm LVPW Diastolic Thickness 1.1 cm 0.6 - 1.0 / 0.6 - 0.9 cm LV Relative Wall Thickness 0.5 LVOT Diameter 2.2 cm M-MODE Aortic Root Diameter MM 3.1 cm LA Systolic Diameter MM 2.9 cm LA Ao Ratio MM 0.9 AV Cusp Separation MM 2.1 cm DOPPLER AV Peak Velocity 99.1 cm/s AV Peak Gradient 3.9 mmHg LVOT Peak Velocity 76.5 cm/s LVOT Peak Gradient 2.3 mmHg AV Area Cont Eq pk 2.9 cm Mitral E Point Velocity 58.7 cm/s Mitral A Point Velocity 45.9 cm/s Mitral E to A Ratio 1.3 LV E' Lateral Velocity 9.2 cm/s Mitral E to LV E' Lateral Ratio 6.4 LV E' Septal Velocity 6.6 cm/s Mitral E to LV E' Septal Ratio 8.9 PV Peak Velocity 111.0 cm/s PV Peak Gradient 4.9 mmHg FINDINGS LEFT VENTRICLE Normal left ventricular size and wall thickness. The left ventricular systolic function is normal wi th an estimated ejection fraction in the range of 60-65%. Left ventricular diastolic function parameters a re normal. RIGHT VENTRICLE Normal right ventricular size and systolic function. LEFT ATRIUM The left atrial size is normal. RIGHT ATRIUM The right atrial size is normal. ATRIAL SEPTUM Normal atrial septal thickness without atrial level shunting by limited color doppler interrogation. AORTA The aortic root and proximal ascending aorta are normal in size on limited imaging. MITRAL VALVE Structurally normal mitral valve. No mitral valve stenosis or regurgitation. AORTIC VALVE Trileaflet aortic valve. No aortic valve stenosis or regurgitation. TRICUSPID VALVE Structurally normal tricuspid valve. No tricuspid valve stenosis or regurgitation. PULMONARY VALVE Trivial pulmonary valve regurgitation. VESSELS The inferior vena cava is normal in size. PERICARDIUM No pericardial effusion. Zelalem Raygoza MD, FACC, FSCAI (Electronically Signed) Final Date:15 Nov 2017 15:30
[2017-11-15] MEDS ORDERED: LEVO500T8 PO ×2 (15:34→15:39)
[2017-11-16] MEDS ORDERED: REMOVE OLD PATCH T-DERMAL SCH (09:00)
== END 2017-11-15 17:14 | disposition home or self-care (01) ==
LOC: NEPE 14:09 → NEDA 17:57 → NEPFCDU 19:23
PROVIDERS: ADMIT Hospitalist; ATTEND Hospitalist
DX: R07.9 Chest pain, unspecified (principal); F11.10 Opioid abuse, uncomplicated; F12.90 Cannabis use, unspecified, uncomplicated; M94.0 Chondrocostal junction syndrome [Tietze]; R05 Cough; R09.89 Other specified symptoms and signs involving the circulatory and respiratory systems; F41.9 Anxiety disorder, unspecified; F32.9 Major depressive disorder, single episode, unspecified; R53.1 Weakness; M79.89 Other specified soft tissue disorders; B19.20 Unspecified viral hepatitis C without hepatic coma; F17.210 Nicotine dependence, cigarettes, uncomplicated; R79.89 Other specified abnormal findings of blood chemistry; B96.20 Unspecified Escherichia coli [E. coli] as the cause of diseases classified elsewhere; R94.31 Abnormal electrocardiogram [ECG] [EKG]; N39.0 Urinary tract infection, site not specified; Z79.899 Other long term (current) drug therapy
CPT/HCPCS: 71046; 80048; 80053; 80307; 81001; 82550; 82552; 83605; 83690; 83735; 84484; 85025; 85610; 85730; 87040; 87077; 87086; 87186; 93005; 93306; 96361; 96365; 96375; 96376; 99285; G0378; J0696; J1885; J3370; J7030; J7050; J7512